=== PATIENT | male | born 1935 | race Caucasian/White ===

== ENCOUNTER 2017-02-04 11:49 | Inpatient (IN) | payer MEDICARE, OTHER ==
[2017-02-04] MEDS ORDERED: Aspirin Low Dose CHEW TAB* 81 MG PO ONE (12:47)
[2017-02-04 13:23] LABS: Hematocrit 39 % (42-52); Hemoglobin 13.1 g/dl (14.0-18.0); Mean Corpuscular HGB Conc 34 g/dl (31-36); Mean Corpuscular Hemoglobin 31 pg (27-31); Mean Corpuscular Volume 91 fL (80-94); Mean Platelet Volume 8 um3 (7.4-10.4); Red Blood Count 4.29 10^6/ul (4.0-5.4); Red Cell Distribution Width 14 % (10.5-15); White Blood Count 9.6 10^3/ul (3.5-10.8)
--- NOTE | 2017-02-04 13:35 | RAD ---
HISTORY: Chest pain, shortness of breath COMPARISONS: March 08, 2007 VIEWS: 1: frontal portable view of the chest at 1:00 PM FINDINGS: LINES AND TUBES: None. CARDIOMEDIASTINAL SILHOUETTE: The cardiomediastinal silhouette is normal for portable technique. PLEURA: The costophrenic angles are sharp. No pleural abnormalities are noted. LUNG PARENCHYMA: The lungs are clear. ABDOMEN: The upper abdomen is clear. There is no subphrenic gas. BONES AND SOFT TISSUES: No bone or soft tissue abnormalities are noted. IMPRESSION: NO ACTIVE CARDIOPULMONARY DISEASE.
[2017-02-04 13:39] LABS: Albumin 3.5 g/dL (3.2-5.2); BUN/Creatinine Ratio 15.3 (8-20); C Reactive Protein 27.22 mg/L (< 5.00); Calcium 9.7 mg/dL (8.6-10.3); EGFR African American 111.5 (>60); EGFR Non-African American 86.7 (>60); Globulin 3.2 g/dL (2-4); Potassium 3.3 mmol/L (3.5-5.0); Total Bilirubin 0.5 mg/dL (0.2-1.0); Total Protein 6.7 g/dL (6.4-8.9)
[2017-02-04 13:40] LABS: Troponin I 0.03 ng/mL (<0.04)
[2017-02-04] MEDS ORDERED: Albuterol/Ipratropium NEB.SOL* Albuterol 2.5 MG/Ipratropium 0.5 MG 3 ML INH ONE (13:40)
[2017-02-04] MEDS ORDERED: methylPREDNISolone 125 MG* 2 ML VIAL IV ONE (13:40)
[2017-02-04] MEDS ORDERED: guaiFENesin/CODIEN 100MG-10MG* 5 ML UDC PO ONE (13:41)
--- NOTE | 2017-02-04 13:46 | RAD ---
HISTORY: Left leg swelling COMPARISONS: January 01, 2007 TECHNIQUE: Multiple transverse and longitudinal ultrasound images were obtained of the left lower extremity from the level of the common femoral vein inferiorly through to the infrapopliteal veins using grayscale, color Doppler, and spectral Doppler imaging with and without compression and with augmentation. Comparison images were obtained of the contralateral common femoral vein. FINDINGS: VEINS: The venous system of the left lower extremity is compressible throughout its course, with normal flow on color Doppler imaging and normal response to augmentation on spectral Doppler imaging. SOFT TISSUES: Unremarkable. OTHER FINDINGS: None. IMPRESSION: NO LEFT LOWER EXTREMITY DEEP VEIN THROMBOSIS
[2017-02-04] MEDS ORDERED: LORazepam INJ* 2 MG/ML 1 ML VIAL IV PUSH ONE (14:11)
[2017-02-04] MEDS ORDERED: Iodixanol* (CONTRAST) 320 MG/ML 100 ML SDV IV ONE (14:17)
[2017-02-04 15:35] LABS: Erythrocyte Sed Rate 73 mm/Hr (0-40)
--- NOTE | 2017-02-04 15:41 | RAD ---
HISTORY: Elevated d-dimer COMPARISONS: November 19, 2013 TECHNIQUE: Multiple contiguous axial CT scans of the chest were obtained after the administration of nonionic intravenous contrast, timed to the pulmonary arterial phase of contrast enhancement.. Coronal and sagittal multiplanar reformations are also submitted for review. FINDINGS: NECK AND THYROID: The lower neck and thyroid are unremarkable. CHEST WALL: There is no lower cervical, axillary, or supraclavicular lymphadenopathy by size criteria. HEART AND PERICARDIUM: The heart is unremarkable. AORTA AND PULMONARY VASCULATURE: There is no pulmonary arterial filling defect to suggest pulmonary embolism. There is no linear filling defect within the aorta to suggest aortic dissection, though evaluation is limited by the phase of contrast administration.. There is atherosclerosis of the thoracic aorta MEDIASTINUM: There is no mediastinal lymphadenopathy by size criteria. SAMEER: There is no hilar lymphadenopathy by size criteria. AIRWAY AND ESOPHAGUS: There is a small sliding hiatal hernia LUNG PARENCHYMA: There is minimal groundglass opacification of the left lung base PLEURA: No pleural abnormalities are noted. UPPER ABDOMEN: The upper abdomen is unremarkable. BONES AND SOFT TISSUES: Degenerative changes are noted OTHER: None. IMPRESSION: 1. NO PULMONARY ARTERIAL FILLING DEFECT TO SUGGEST PULMONARY EMBOLISM. 2. MINIMAL PATCHY AIRSPACE DISEASE OF THE LEFT LOWER LOBE
--- NOTE | 2017-02-04 15:44 | RAD ---
Indication: Chest pain and shortness of breath since Friday. Comparison: November 19, 2013 Technique: Noncontrast CT vertex of skull through foramen magnum. Report: The sulci, ventricles, and basal cisterns are normal for age. Arnold matter white matter differentiation is preserved without evidence for edema. No intra or extra axial hemorrhage, mass, or fluid collection detected. Decreased density in the periventricular and subcortical white matter while non-specific is most likely due to chronic microangiopathy. Atherosclerotic calcification of the dominant intracranial arteries at the skull base. Unremarkable visualized orbital contents. Unremarkable calvarium and skull base. Unremarkable scalp. The visualized paranasal sinuses and mastoid air spaces are clear. IMPRESSION: 1. No acute intracranial process evident. 2. Stigmata of chronic small vessel ischemic disease without change.
[2017-02-04] MEDS ORDERED: Azithromycin IV(*) 500 MG in NS 0.9% 250 ML* 250 ML IVPB ONE (16:55)
[2017-02-04] MEDS ORDERED: cefTRIAXone(*) 1 GM in NS 0.9% 50 ML* 50 ML IVPB ONE (16:55)
[2017-02-04] MEDS ORDERED: Ondansetron INJ* 2 MG/ML VIAL IV PRN (18:06)
[2017-02-04] MEDS ORDERED: Dextrose 50% Syringe 50 ML* 25 GM/50 ML SYRINGE IV PUSH PRN (18:18)
[2017-02-04] MEDS ORDERED: Albuterol/Ipratropium NEB.SOL* Albuterol 2.5 MG/Ipratropium 0.5 MG 3 ML INH PRN (19:00)
[2017-02-04] MEDS ORDERED: Enoxaparin(*) 40 MG/0.4 ML SYR SUBCUT SCH (19:00)
[2017-02-04 21:02] LABS: TSH (Thyroid Stimulating Horm) 67.55 mcIU/mL (0.34-5.60)
--- NOTE | 2017-02-04 21:34 | HP ---
ADMISSION HISTORY AND PHYSICAL: DATE OF ADMISSION: 02/04/17 PRIMARY CARE PROVIDER: Not yet established. ADMITTING PROVIDER: SUSI Leggett SUPERVISING PHYSICIAN: Dr. Agus Bragg * (DICTATED BY SUSI LEGGETT) CHIEF COMPLAINT: Shortness of breath and cough with right-sided chest pain. HISTORY OF PRESENT ILLNESS: This is an 81-year-old gentleman with a known history of coronary artery disease, status post PCI; hypertension; hypothyroidism; mild COPD; insulin-dependent diabetes, who presented to the emergency department with complaints of shortness of breath, right-sided chest pain, and cough for the last couple of days. His chest pain is not acute. He sustained a fall a few months ago, which he believes he injured the ribs on his right side and that has been bothersome with various position changes ever since. He notices the pain being worse with cough that he has been experiencing in the last couple of days. He has had cold, sweats, and felt feverish at home. He has had associated headache and nasal congestion and felt mildly short of breath associated with this productive cough. He has not taken any home [id number] medications. PAST MEDICAL HISTORY: 1. Hypertension. 2. Coronary artery disease, status post PCI several years ago, recent cath from within the last year is described as 100% stenosis with collateral circulation established. 3. Hypothyroidism. 4. COPD - the patient does not use any home inhaled therapy. 5. Insulin-dependent diabetes - the patient states that he rarely requires his insulin. PAST SURGICAL HISTORY: 1. Cholecystectomy. 2. PCI. 3. Cataract extraction. 4. Possible retinal surgery. HOME MEDICATIONS: 1. Aspirin 81 mg p.o. daily. 2. Plavix 75 mg p.o. daily. 3. Humulin regular insulin 25 units subcu 3 times daily if glucose is greater than 125 mg/dL. 4. Isosorbide 20 mg p.o. daily. 5. Levothyroxine of unknown dose. 6. Lisinopril 40 mg p.o. daily. 7. Metoprolol succinate 25 mg p.o. daily. 8. Amlodipine 10 mg p.o. daily. 9. Hydralazine 100 mg p.o. twice daily. SOCIAL HISTORY: The patient recently moved to the area just about a month ago from [place] to be closer to his daughter. He does have smoking history, but quit about 30 years ago. He said that he was a heavy smoker prior to that and unsure of the pack year history. REVIEW OF SYSTEMS: As noted above in HPI, all other systems reviewed and considered negative. PHYSICAL EXAMINATION GENERAL: This is a pleasant elderly gentleman, in no acute distress accompanied by his daughter. VITAL SIGNS: Initial vitals, temperature 97.9 degrees Fahrenheit, pulse 65 beats per minute, respiratory rate 20 per minute, oxygen saturation 97% on room air, and blood pressure 130/64 mmHg. HEENT: Head is normocephalic, atraumatic. Mucous membranes are pink and moist. RESPIRATORY: The patient has a wet cough with diffuse rhonchi appreciated throughout all lung raya. CARDIOVASCULAR: Heart has a regular rate and rhythm without murmurs, rubs, or gallops. ABDOMEN: Soft and nontender to palpation. EXTREMITIES: There is some subtle left lower extremity edema, otherwise negative. PSYCH: The patient is alert and appropriately oriented. SKIN: Limited exam shows no concerning rashes or lesions. DIAGNOSTIC STUDIES/LAB DATA: CBC shows a white blood cell count of 9600, hemoglobin of 13.1 g/dL, platelet count of 229,000. D-dimer 682. Comprehensive metabolic panel shows a sodium of 137 mmol/L, potassium 3.3, BUN of 13, creatinine 0.85. Random glucose of 126 mg/dL. Lactic acid normal at 0.8. Transaminases and total bilirubin within normal limits. Troponin negative x2 at 0.03 and 0.02. CRP only mildly elevated at 27.2. BNP slightly elevated at 184. Influenza testing is negative. Imaging: Chest x-ray shows no acute process. CTA of the chest shows no PE, but subtle left lower lobe infiltrate. Venous Doppler of the left lower extremity shows no DVT. CT of the brain is negative for acute pathology. ASSESSMENT AND PLAN: This is an 81-year-old gentleman with history of coronary artery disease, chronic obstructive pulmonary disease, hypothyroidism, diabetes , and hypertension, who presents with cough, chest pain, and fevers with a subtle left lower lobe infiltrate appreciated on CT scan. 1. Pneumonia - the patient will be admitted for treatment of most likely a community-acquired pneumonia. He does not have any significant tachypnea, hypoxia, fever, or leukocytosis. He is, however, significantly symptomatic with complaints of frequent cough, malaise, and feeling feverish at home. We will empirically treat with ceftriaxone and azithromycin. With his history of chronic obstructive pulmonary disease, we will also start oral prednisone and DuoNeb. 2. Chronic obstructive pulmonary disease - there might be a mild associated exacerbation as a result of this pneumonia. He does have diffuse rhonchi. He states that he does not use any inhaled therapies at home. We will start DuoNeb and oral corticosteroids during his hospital stay. 3. Insulin-dependent diabetes - the patient states that he rarely requires use of his insulin because his glucose is generally less than 125 mg/dL at which point he was told not to take this. We will plan to check a hemoglobin A1c and the patient may no longer require the large amount of insulin that had been prescribed to him, but he is yet to establish primary care in the area, which can help address this further as an outpatient. 4. Hypertension - the patient is mildly hypertensive in the emergency department. We will plan to continue his usual antihypertensive medications. 5. Hypothyroidism - the patient reports a history of hypothyroidism and believes that he is on thyroid medication, but the medication bag that he provides me does not have levothyroxine present. We will plan to check a TSH, it sounds like levothyroxine not need to be prescribed to him as he recently just moved to the area and is yet to establish primary care. 6. Coronary artery disease - the patient is complaining of chest pain; however , it is right-sided, positional, and worse with coughing. His infiltrate is on the opposite side and it sounds like his chest pain has been present for several months after a fall and is simply exacerbated by his cough and not necessarily claim representative of an acute complaint and there is certainly no evidence of acute coronary syndrome. 7. Code status. The patient is full code. 8. DVT prophylaxis. The patient will be started on subcu Lovenox. 9. Healthcare proxy is his daughter. DISPOSITION: The patient is being admitted to observation status. Anticipated length of stay to be less than 2 midnights. The patient will require to be established with the primary care provider at the time of discharge. SUSI LEGGETT [id number]/[facility] #: [id number] [facility]ITALBarbara
[2017-02-04] MEDS: hydrALAZINE TAB* 100 MG ** ONE HUNDRED PO SCH (22:13)
[2017-02-04] MEDS: Enoxaparin(*) 40 MG/0.4 ML SYR SUBCUT SCH (22:14)
[2017-02-04] MEDS ORDERED: guaiFENesin LIQ* 100 MG/5 ML UDC PO ONE (23:08)
[2017-02-05 06:21] LABS: Hematocrit 35 % (42-52); Hemoglobin 12.3 g/dl (14.0-18.0); Mean Corpuscular HGB Conc 35 g/dl (31-36); Mean Corpuscular Hemoglobin 31 pg (27-31); Mean Corpuscular Volume 90 fL (80-94); Mean Platelet Volume 9 um3 (7.4-10.4); Red Blood Count 3.94 10^6/ul (4.0-5.4); Red Cell Distribution Width 14 % (10.5-15); White Blood Count 8.6 10^3/ul (3.5-10.8)
[2017-02-05 06:38] LABS: BUN/Creatinine Ratio 21.8 (8-20); Calcium 9.5 mg/dL (8.6-10.3); EGFR African American 108.6 (>60); EGFR Non-African American 84.4 (>60); Potassium 3.4 mmol/L (3.5-5.0)
[2017-02-05] MEDS: Metoprolol Succinate XL TAB* 25 MG PO SCH (07:43)
[2017-02-05] MEDS ORDERED: Polyethylene Glycol 3350* 17 GM PACKET PO PRN (08:00)
[2017-02-05] MEDS: Insulin LISPRO* 1 UNITS UNIT SUBCUT SCH ×3 (08:36→18:01)
[2017-02-05] MEDS: amLODIPine TAB* 5 MG PO SCH (08:37)
[2017-02-05] MEDS: hydrALAZINE TAB* 100 MG ** ONE HUNDRED PO SCH ×2 (08:37→20:25)
[2017-02-05] MEDS: predniSONE TAB* 20 MG PO SCH (08:37)
[2017-02-05] MEDS: Lisinopril TAB* 10 MG PO SCH (08:37)
[2017-02-05] MEDS: Clopidogrel TAB* 75 MG PO SCH (08:37)
[2017-02-05] MEDS: Aspirin EC Low Dose* 81 MG TAB.EC PO SCH (08:37)
[2017-02-05] MEDS: CMC:Isosorbide Mononitrate (NF) 20 MG TAB PO SCH (08:49)
--- NOTE | 2017-02-05 10:24 | PN ---
Subjective Date of Service: 02/05/17 Interval History: This is an 81 yo gentleman admitted yesterday with PNA. He reports he still has a freq cough, some mild R sided chest pain. No severe dyspnea. He feels weak and would like to pursue additional physical therapy. Denies abd pain, n/ v. Objective Active Medications: Albuterol/Ipratropium (Duoneb (Albuterol 2.5 Mg/Ipratropium 0.5 Mg)) 1 neb INH RT.D1PM-POMBD AWAKE [facility] Amlodipine Besylate (Norvasc Tab*) 10 mg PO DAILY [facility] Last Admin: 02/05/17 08:37 Dose: 10 mg Aspirin (Aspirin Ec Low Dose*) 81 mg PO DAILY [facility] Last Admin: 02/05/17 08:37 Dose: 81 mg Clopidogrel Bisulfate (Plavix Tab*) 75 mg PO DAILY [facility] Last Admin: 02/05/17 08:37 Dose: 75 mg Dextrose (D50w Syringe 50 Ml*) 12.5 gm IV PUSH .FOR FS < 60 - SS PRN PRN Reason: FS < 60 Enoxaparin Sodium (Lovenox(*)) 40 mg SUBCUT 2200 [facility] Last Admin: 02/04/17 22:14 Dose: 40 mg Hydralazine HCl (Apresoline Tab*) 100 mg PO BID [facility] Last Admin: 02/05/17 08:37 Dose: 100 mg Ceftriaxone Sodium 1,000 mg/ (Sodium Chloride) 50 mls @ 200 mls/hr IVPB Q24H [facility] Azithromycin 250 mg/ Sodium (Chloride) 250 mls @ 250 mls/hr IVPB Q24H [facility] Insulin Glargine (Lantus(*)) 10 units SUBCUT QPM [facility] Insulin Human Lispro (Humalog*) 0 units SUBCUT AC [facility] PRN Reason: Protocol Last Admin: 02/05/17 08:36 Dose: 2 units Isosorbide Mononitrate (Isosorbide Mononitrate (Nf)) 20 mg PO DAILY [facility] PRN Reason: Protocol Last Admin: 02/05/17 08:49 Dose: 20 mg Levothyroxine Sodium (Synthroid Tab*) 150 mcg PO DAILY@0600 [facility] Lisinopril (Prinivil Tab*) 40 mg PO DAILY [facility] Last Admin: 02/05/17 08:37 Dose: 40 mg Metoprolol Succinate (Toprol Xl Tab*) 25 mg PO DAILY [facility] Last Admin: 02/05/17 07:43 Dose: Not Given Ondansetron HCl (Zofran Inj*) 4 mg IV Q4H PRN PRN Reason: NAUSEA/VOMITING Polyethylene Glycol/Electrolytes (Miralax*) 17 gm PO DAILY PRN PRN Reason: CONSTIPATION Prednisone (Deltasone Tab*) 40 mg PO DAILY [facility] Last Admin: 02/05/17 08:37 Dose: 40 mg Vital Signs: Temp Pulse Resp BP Pulse Ox 98.2 F 75 18 154/56 97 02/05/17 03:33 02/05/17 03:33 02/05/17 03:33 02/05/17 03:33 02/05/17 03:33 Oxygen Devices in Use Now: None Appearance: Elderly gentleman in NAD. Accompanied by his daughter Respiratory: Symmetrical Chest Expansion and Respiratory Effort, - - diffuse rhonchi, productive cough Cardiovascular: NL Sounds; No Murmurs; No JVD, RRR Extremities: No Edema Neurological: Alert and Oriented x 3 Result Diagrams: 02/05/17 05:44 02/05/17 05:44 Assess/Plan/Problems-Billing Assessment: This is an 81 yo gentleman with mild COPD, CAD, DM, hypothyroidism and HTN who presented with c/o cough and CP. He has been admitted with a community acquired pneumonia. - Patient Problems (1) Community acquired pneumonia Comment: Cont ceftriaxone/azithro Cultures pending (2) COPD exacerbation Comment: Mild, diffuse rhonchi on exam Cont oral corticosteroids and DuoNebs (3) Diabetes Comment: Prescribed Humulin-R at home at doses of 35U tid, he reports that he takes 25U ~ 3x weekly, as his glucose is generally <120 mg/dl HgbA1c 7% He reports a poor reaction to metformin and does not wish to start any alternate oral therapies Will start low dose Lantus and monitor mealtime glucose (4) Hypothyroidism Comment: TSH 67.5 Patient admits to forgetting his levothyroxine for some time, he believes he was on 150mcg daily Restarted levothyroxine, recommend repeat TSH in 4-6 weeks (5) Hypertension Comment: Mild HTN Cont home antihypertensives at this time (6) CAD (coronary artery disease) Comment: No evidence of ACS, presenting c/o CP is most likely MS related to cough Cont home medical therapy (7) Full code status (8) DVT prophylaxis Comment: SQ Lovenox Status and Disposition: Transition to inpatient. Patient would benefit from LINDSAY prior to returning home. Pending PT/OT consult
[2017-02-05] MEDS: Albuterol/Ipratropium NEB.SOL* Albuterol 2.5 MG/Ipratropium 0.5 MG 3 ML INH SCH ×4 (10:37→23:35)
--- NOTE | 2017-02-05 13:31 | ED ---
Rubens Mcgregor Nilda, scribed for Kavin Narayanan MD on 02/04/17 at 1312 . Respiratory - HPI Summary HPI Summary: This patient is an 81 year old M presenting to [facility] accompanied by family with a chief complaint of exacerbated productive cough (yellow) since two days ago. The patient rates the pain 7/10 in severity. Symptoms alleviated by nothing. Patient reports head pain, edema, neck pain, chest pain (when coughing), wheezing, SOB, orthopnea, aches and pains, falls often, ambulation difficulties. PMHx includes CAD (5 stents), COPD, and bronchitis. - History of Current Complaint Chief Complaint: EDChestPainROMI Stated Complaint: SOB/DIFFICULTY BREATHING/COUGH Time Seen by Provider: 02/04/17 12:44 Hx Obtained From: Patient Onset/Duration: Gradual Onset, Lasting Days - 2 days, Still Present Timing: Constant Current Severity: Severe Pain Intensity: 7 Character: Cough (Productive) Sputum Amount: Large Sputum Color: Yellow Alleviating Factor(s): Nothing Associated Signs and Symptoms: SOB, Chest Pain with Cough - Allergy/Home Medications Allergies/Adverse Reactions: Allergies Allergy/AdvReac Type Severity Reaction Status Date / Time Amlodipine [From Norvasc] Allergy Unknown Verified 02/04/17 11:56 Reaction Details Atorvastatin [From Lipitor] Allergy Unknown Verified 02/04/17 11:56 Reaction Details Dipyridamole Allergy Unknown Verified 02/04/17 11:56 [From Persantine] Reaction Details Eplerenone [From Inspra] Allergy Unknown Verified 02/04/17 11:56 Reaction Details Ezetimibe [From Vytorin] Allergy Unknown Verified 02/04/17 11:56 Reaction Details Gemfibrozil [From Lopid] Allergy Unknown Verified 02/04/17 11:56 Reaction Details Rosuvastatin [From Crestor] Allergy Unknown Verified 02/04/17 11:56 Reaction Details Simvastatin [From Vytorin] Allergy Unknown Verified 02/04/17 11:56 Reaction Details PMH/Surg Hx/FS Hx/Imm Hx Endocrine/Hematology History: Reports: Hx Diabetes Cardiovascular History: Reports: Hx Coronary Artery Disease, Hx Hypertension Respiratory History: Reports: Hx Chronic Bronchitis, Hx Chronic Obstructive Pulmonary Disease (COPD) - Surgical History Surgery Procedure, Year, and Place: CATARACTS, CARDIAC CATH Infectious Disease History: No Infectious Disease History: Denies: Traveled Outside the [place] in Last 30 Days - Family History Known Family History: Positive: Diabetes Negative: Hypertension - Social History Alcohol Use: Occasionally Substance Use Type: Reports: None Review of Systems Negative: Fever, Chills Negative: Erythema Negative: Sore Throat Positive: Chest Pain - with coughing Positive: Shortness Of Breath, Cough - productive, Other - wheezing, orthopnea Negative: Abdominal Pain, Vomiting, Nausea Negative: dysuria, hematuria Positive: Edema, Other - neck pain, general aches and pains, ambulation difficulty. Negative: Myalgia Negative: Rash Neurological: Other - falls; negative dizziness Positive: Headache All Other Systems Reviewed And Are Negative: Yes Physical Exam - Summary Physical Exam Summary: Constitutional: Well-developed, Well-nourished, Alert. (-) Distressed Skin: Warm, Dry HENT: Normocephalic; Atraumatic Eyes: Conjunctiva normal Neck: Musculoskeletal ROM normal neck. (-) JVD, (-) Stridor, (-) Tracheal deviation Cardio: Rhythm regular, rate normal, Heart sounds normal; Intact distal pulses; The pedal pulses are 2+ and symmetric. Radial pulses are 2+ and symmetric. (-) Murmur Pulmonary/Chest wall: Effort normal. (-) Respiratory distress, Expiratory wheezes and crackles on left lower lung field Abd: Soft, (-) Tenderness, (-) Distension, (-) Guarding, (-) Rebound Musculoskeletal: (+) Trace Edema Lymph: (-) Cervical adenopathy Neuro: Alert, Oriented x3 Psych: Mood and affect Normal Triage Information Reviewed: Yes Vital Signs On Initial Exam: Initial Vitals Temp Pulse Resp BP Pulse Ox 97.9 F 65 20 130/64 97 02/04/17 11:55 02/04/17 11:55 02/04/17 11:55 02/04/17 11:55 02/04/17 11:55 Vital Signs Reviewed: Yes Diagnostics - Vital Signs Vital Signs Temp Pulse Resp BP Pulse Ox 02/04/17 11:55 97.9 F 65 20 130/64 97 - Laboratory Result Diagrams: 02/04/17 13:10 02/04/17 13:10 Lab Statement: Any lab studies that have been ordered have been reviewed, and results considered in the medical decision making process. - Radiology CXR Radiology Interpretation Completed By: Radiologist - NAD. ED physician reviewed report and agrees. - CT Brain CT Interpretation Completed By: Radiologist - No acute intracranial process evident. Stigmata of chronic small vessel ischemic disease without change. ED physician reviewed report and agrees. CTA Chest CT Interpretation Completed By: Radiologist - No pulmonary arterial filling defect to suggest pulmonary embolism. Minimal patchy airspace disease of the left lower lobe. ED physician reviewed report and agrees. - EKG 1203 Cardiac Rate: NL - 64 bpm EKG Rhythm: Sinus Rhythm Ectopy: PACs EKG Interpretation: No STEMI - Additional Comments Diagnostic Additional Comments: Venous Doppler Study, per radiologists, reveals no left lower extremity deep vein thrombosis. ED physician has reviewed this radiology report and agrees. Re-Evaluation - Re-Evaluation First Eval Re-Evaluation Time: 16:53 Comment: ED Physician reviewed lab results. Patient does not feel comfortable going home and would like to be admitted. Disposition - Course Assessment/Plan: This patient is an 81 year old M presenting to [facility] accompanied by family with a chief complaint of exacerbated productive cough ( yellow) since two days ago. The patient rates the pain 7/10 in severity. Symptoms alleviated by nothing. Patient reports head pain, edema, neck pain, chest pain (when coughing), wheezing, SOB, orthopnea, aches and pains, falls often, ambulation difficulties. PMHx includes CAD (5 stents), COPD, and bronchitis. EKG reveals Sinus Rhythm (64 bpm), PACs, No STEMI [1203. CXR, per radiologist, reveals no active pulmonary disease. Venous Doppler Study, per radiologist, reveals no left lower extremity deep vein thrombosis. CT Brain, per radiologist, reveals no acute intracranial process evident. Stigmata of chronic small vessel ischemic disease without change. CTA Chest, per radiologist, reveals no pulmonary arterial filling defect to suggest pulmonary embolism. Minimal patchy airspace disease of the left lower lobe. ED physician reviewed radiology reports and agrees. [16:53] Re-Eval: ED Physician reviewed lab results. Patient does not feel comfortable going home and would like to be admitted. [1700] Consult: Dr. Allen (Hospitalist) will admit patient. Patient is stable and will be admitted with a diagnosis of community acquired PNA and chest wall pain. - Diagnoses Provider Diagnoses: Chest wall pain, Community acquired pneumonia - Physician Notifications Discussed Care Of Patient With: Avani Allen - Hospitalist Time Discussed With Above Provider: 17:00 Instructed by Provider To: Admit As Inpatient Discharge - Discharge Plan Condition: Stable Disposition: ADMITTED TO [facility] Patient Education Materials: Pneumonia (ED), Chest Wall Pain (ED) The documentation as recorded by the Rubens breaux Nilda accurately reflects the service I personally performed and the decisions made by , Kavin Narayanan MD.
[2017-02-05] MEDS: Insulin GLARGINE(*) 1 UNITS UNIT SUBCUT SCH (18:01)
[2017-02-05] MEDS: cefTRIAXone VIAL(*) 1,000 MG in NS 0.9% 50 ML* 50 ML IVPB SCH (18:01)
[2017-02-05] MEDS: Azithromycin IV(*) 250 MG in NS 0.9% 250 ML* 250 ML IVPB SCH (18:29)
[2017-02-05] MEDS: Enoxaparin(*) 40 MG/0.4 ML SYR SUBCUT SCH (21:15)
[2017-02-05] MEDS ORDERED: traZODone TAB* 50 MG TAB PO ONE (21:43)
[2017-02-06] MEDS: Albuterol/Ipratropium NEB.SOL* Albuterol 2.5 MG/Ipratropium 0.5 MG 3 ML INH SCH ×6 (03:47→23:27)
[2017-02-06] MEDS: Levothyroxine TAB* 150 MCG TAB PO SCH (06:14)
[2017-02-06] MEDS ORDERED: Levothyroxine TAB* 50 MCG TAB PO SCH (07:30)
[2017-02-06] MEDS: Insulin LISPRO* 1 UNITS UNIT SUBCUT SCH ×3 (08:50→17:12)
[2017-02-06] MEDS: Metoprolol Succinate XL TAB* 25 MG PO SCH (08:55)
[2017-02-06] MEDS: Lisinopril TAB* 10 MG PO SCH (09:00)
[2017-02-06] MEDS: predniSONE TAB* 20 MG PO SCH (09:00)
[2017-02-06] MEDS: hydrALAZINE TAB* 100 MG ** ONE HUNDRED PO SCH ×3 (09:00→21:30)
[2017-02-06] MEDS: CMC:Isosorbide Mononitrate (NF) 20 MG TAB PO SCH (09:00)
[2017-02-06] MEDS: Aspirin EC Low Dose* 81 MG TAB.EC PO SCH (09:01)
[2017-02-06] MEDS: amLODIPine TAB* 5 MG PO SCH (09:01)
[2017-02-06] MEDS: Clopidogrel TAB* 75 MG PO SCH (09:01)
[2017-02-06] MEDS: Acetaminophen TAB* 325 MG PO PRN (10:16)
--- NOTE | 2017-02-06 12:35 | PN ---
Subjective Date of Service: 02/06/17 Interval History: Patient is not feeling well today. He reports that he didn't sleep well last night because of disruption from a roommate. He is complaining of a MOORE, malaise , cough, some increased SOB. No abd pain. Poor appetite. No n/v. Objective Active Medications: Acetaminophen (Tylenol Tab*) 650 mg PO Q6H PRN PRN Reason: pain/fever Last Admin: 02/06/17 10:16 Dose: 650 mg Albuterol/Ipratropium (Duoneb (Albuterol 2.5 Mg/Ipratropium 0.5 Mg)) 1 neb INH [id number] AWAKE [facility] Last Admin: 02/06/17 11:48 Dose: Not Given Amlodipine Besylate (Norvasc Tab*) 10 mg PO DAILY [facility] Last Admin: 02/06/17 09:01 Dose: 10 mg Aspirin (Aspirin Ec Low Dose*) 81 mg PO DAILY [facility] Last Admin: 02/06/17 09:01 Dose: 81 mg Clopidogrel Bisulfate (Plavix Tab*) 75 mg PO DAILY [facility] Last Admin: 02/06/17 09:01 Dose: 75 mg Dextrose (D50w Syringe 50 Ml*) 12.5 gm IV PUSH .FOR FS < 60 - SS PRN PRN Reason: FS < 60 Enoxaparin Sodium (Lovenox(*)) 40 mg SUBCUT 2200 [facility] Last Admin: 02/05/17 21:15 Dose: 40 mg Hydralazine HCl (Apresoline Tab*) 100 mg PO TID [facility] Ceftriaxone Sodium 1,000 mg/ (Sodium Chloride) 50 mls @ 200 mls/hr IVPB Q24H [facility] Last Admin: 02/05/17 18:01 Dose: 200 mls/hr Azithromycin 250 mg/ Sodium (Chloride) 250 mls @ 250 mls/hr IVPB Q24H [facility] Last Admin: 02/05/17 18:29 Dose: 250 mls/hr Insulin Glargine (Lantus(*)) 10 units SUBCUT QPM [facility] Last Admin: 02/05/17 18:01 Dose: 10 units Insulin Human Lispro (Humalog*) 0 units SUBCUT AC [facility] PRN Reason: Protocol Last Admin: 02/06/17 08:50 Dose: 1 units Isosorbide Mononitrate (Isosorbide Mononitrate (Nf)) 20 mg PO DAILY [facility] PRN Reason: Protocol Last Admin: 02/06/17 09:00 Dose: 20 mg Levothyroxine Sodium (Synthroid Tab*) 150 mcg PO DAILY@0600 [facility] Last Admin: 02/06/17 06:14 Dose: 150 mcg Lisinopril (Prinivil Tab*) 40 mg PO DAILY [facility] Last Admin: 02/06/17 09:00 Dose: 40 mg Metoprolol Succinate (Toprol Xl Tab*) 25 mg PO DAILY [facility] Last Admin: 02/06/17 08:55 Dose: Not Given Ondansetron HCl (Zofran Inj*) 4 mg IV Q4H PRN PRN Reason: NAUSEA/VOMITING Polyethylene Glycol/Electrolytes (Miralax*) 17 gm PO DAILY PRN PRN Reason: CONSTIPATION Prednisone (Deltasone Tab*) 40 mg PO DAILY [facility] Last Admin: 02/06/17 09:00 Dose: 40 mg Vital Signs: Temp Pulse Resp BP Pulse Ox 98.7 F 62 23 160/64 96 02/06/17 09:10 02/06/17 09:10 02/06/17 09:10 02/06/17 09:10 02/06/17 09:10 Oxygen Devices in Use Now: None Appearance: Mildly ill appearing elderly gentleman in NAD Respiratory: Symmetrical Chest Expansion and Respiratory Effort, - - diffuse rhonchi Cardiovascular: NL Sounds; No Murmurs; No JVD, RRR Abdominal: NL Sounds; No Tenderness; No Distention Extremities: No Edema Neurological: Alert and Oriented x 3 Result Diagrams: 02/05/17 05:44 02/05/17 05:44 Microbiology and Other Data: Microbiology 02/06/17 09:07 Gram Stain - Final Sputum Assess/Plan/Problems-Billing Assessment: This is an 81 yo gentleman with mild COPD, CAD, DM, hypothyroidism and HTN who presented with c/o cough and CP. He has been admitted with a community acquired pneumonia. - Patient Problems (1) Community acquired pneumonia Comment: Cont ceftriaxone/azithro Cultures still pending Worsening cough and SOB today, but afebrile Will repeat labs and CXR (2) COPD exacerbation Comment: Mild, diffuse rhonchi on exam Cont oral corticosteroids and DuoNebs (3) Diabetes Comment: Prescribed Humulin-R at home at doses of 35U tid, he reports that he takes 25U ~ 3x weekly, as his glucose is generally <120 mg/dl HgbA1c 7% He reports a poor reaction to metformin and does not wish to start any alternate oral therapies Started low dose Lantus and monitor mealtime glucose (4) Hypothyroidism Comment: TSH 67.5 Patient admits to forgetting his levothyroxine for some time, he believes he was on 150mcg daily Restarted levothyroxine, recommend repeat TSH in 4-6 weeks (5) Hypertension Comment: Mild HTN Cont home antihypertensives at this time (6) CAD (coronary artery disease) Comment: No evidence of ACS, presenting c/o CP is most likely MS related to cough Cont home medical therapy (7) Full code status (8) DVT prophylaxis Comment: SQ Lovenox Status and Disposition: Inpatient. Patient would benefit from [facility] prior to returning home. Anticipate dc in 1-2 d
[2017-02-06] MEDS: guaiFENesin/CODIEN 100MG-10MG* 5 ML UDC PO PRN (12:44)
[2017-02-06 14:54] LABS: Hematocrit 36 % (42-52); Mean Corpuscular HGB Conc 34 g/dl (31-36); Mean Corpuscular Hemoglobin 31 pg (27-31); Mean Corpuscular Volume 91 fL (80-94); Mean Platelet Volume 9 um3 (7.4-10.4); Red Blood Count 3.91 10^6/ul (4.0-5.4); Red Cell Distribution Width 14 % (10.5-15); White Blood Count 10.6 10^3/ul (3.5-10.8)
[2017-02-06 15:08] LABS: BUN/Creatinine Ratio 21.1 (8-20); C Reactive Protein 13.1 mg/L (< 5.00); Calcium 9.9 mg/dL (8.6-10.3); EGFR African American 72.8 (>60); EGFR Non-African American 56.6 (>60); Potassium 4.3 mmol/L (3.5-5.0)
--- NOTE | 2017-02-06 15:30 | RAD ---
INDICATION: Pneumonia COMPARISON: Chest x-ray February 04, 2017 TECHNIQUE: PA and lateral dual-energy views were obtained. FINDINGS: Bones/Soft Tissues: There are no acute bony findings. Cardiomediastinal: The cardiomediastinal silhouette is normal. Lungs: There is consolidative change in the right middle lobe with mild fine loss consistent with infiltrate or atelectasis. The remaining raya are clear. Pleura: There are no pleural effusions. Other: None IMPRESSION: RIGHT MIDDLE LOBE INFILTRATE. SUGGEST FOLLOW-UP.
[2017-02-06] MEDS: Insulin GLARGINE(*) 1 UNITS UNIT SUBCUT SCH (18:14)
[2017-02-06] MEDS: cefTRIAXone VIAL(*) 1,000 MG in NS 0.9% 50 ML* 50 ML IVPB SCH (18:14)
[2017-02-06] MEDS: Azithromycin IV(*) 250 MG in NS 0.9% 250 ML* 250 ML IVPB SCH (19:02)
[2017-02-06] MEDS: Enoxaparin(*) 40 MG/0.4 ML SYR SUBCUT SCH (21:31)
[2017-02-06] MEDS ORDERED: traZODone TAB* 50 MG TAB PO ONE (23:28)
[2017-02-07] MEDS: Albuterol/Ipratropium NEB.SOL* Albuterol 2.5 MG/Ipratropium 0.5 MG 3 ML INH SCH ×6 (03:14→22:12)
[2017-02-07 06:06] LABS: Hematocrit 32 % (42-52); Hemoglobin 11.3 g/dl (14.0-18.0); Mean Corpuscular HGB Conc 35 g/dl (31-36); Mean Corpuscular Hemoglobin 32 pg (27-31); Mean Corpuscular Volume 90 fL (80-94); Mean Platelet Volume 9 um3 (7.4-10.4); Red Blood Count 3.57 10^6/ul (4.0-5.4); Red Cell Distribution Width 14 % (10.5-15)
[2017-02-07 06:21] LABS: BUN/Creatinine Ratio 23.7 (8-20); Calcium 9.3 mg/dL (8.6-10.3); EGFR African American 100.5 (>60); EGFR Non-African American 78.2 (>60); Potassium 3.4 mmol/L (3.5-5.0)
[2017-02-07] MEDS: Levothyroxine TAB* 150 MCG TAB PO SCH (06:38)
[2017-02-07] MEDS: Insulin LISPRO* 1 UNITS UNIT SUBCUT SCH ×3 (08:47→18:02)
[2017-02-07] MEDS: Acetaminophen TAB* 325 MG PO PRN ×2 (08:48→21:21)
[2017-02-07] MEDS: Lisinopril TAB* 10 MG PO SCH (08:49)
[2017-02-07] MEDS: Metoprolol Succinate XL TAB* 25 MG PO SCH (08:49)
[2017-02-07] MEDS: Clopidogrel TAB* 75 MG PO SCH (08:49)
[2017-02-07] MEDS: Aspirin EC Low Dose* 81 MG TAB.EC PO SCH (08:49)
[2017-02-07] MEDS: predniSONE TAB* 20 MG PO SCH (08:49)
[2017-02-07] MEDS: amLODIPine TAB* 5 MG PO SCH (08:49)
[2017-02-07] MEDS: hydrALAZINE TAB* 100 MG ** ONE HUNDRED PO SCH ×3 (10:01→21:22)
[2017-02-07] MEDS: CMC:Isosorbide Mononitrate (NF) 20 MG TAB PO SCH (10:01)
[2017-02-07] MEDS: guaiFENesin/CODIEN 100MG-10MG* 5 ML UDC PO PRN ×2 (10:06→21:19)
--- NOTE | 2017-02-07 16:32 | PN ---
Subjective Date of Service: 02/07/17 Interval History: Patient states he feels moderately better than yesterday partially related to less disturbance of sleep last night. Patient continues to have SOB moderately improved since admission and CP unchanged since admission. Patient denies any other new complaints. Family History: Unchanged from Admission Social History: Unchanged from Admission Past Medical History: Unchanged from Admission Objective Active Medications: Acetaminophen (Tylenol Tab*) 650 mg PO Q6H PRN PRN Reason: pain/fever Last Admin: 02/07/17 08:48 Dose: 650 mg Albuterol/Ipratropium (Duoneb (Albuterol 2.5 Mg/Ipratropium 0.5 Mg)) 1 neb INH [id number] AWAKE [facility] Last Admin: 02/07/17 15:13 Dose: Not Given Amlodipine Besylate (Norvasc Tab*) 10 mg PO DAILY [facility] Last Admin: 02/07/17 08:49 Dose: 10 mg Aspirin (Aspirin Ec Low Dose*) 81 mg PO DAILY [facility] Last Admin: 02/07/17 08:49 Dose: 81 mg Clopidogrel Bisulfate (Plavix Tab*) 75 mg PO DAILY [facility] Last Admin: 02/07/17 08:49 Dose: 75 mg Dextrose (D50w Syringe 50 Ml*) 12.5 gm IV PUSH .FOR FS < 60 - SS PRN PRN Reason: FS < 60 Enoxaparin Sodium (Lovenox(*)) 40 mg SUBCUT 2200 [facility] Last Admin: 02/06/17 21:31 Dose: 40 mg Guaifenesin/Codeine Phosphate (Robitussin Ac 100mg-10mg*) 5 ml PO Q4H PRN PRN Reason: COUGH Last Admin: 02/07/17 10:06 Dose: 5 ml Hydralazine HCl (Apresoline Tab*) 100 mg PO TID [facility] Last Admin: 02/07/17 14:43 Dose: 100 mg Ceftriaxone Sodium 1,000 mg/ (Sodium Chloride) 50 mls @ 200 mls/hr IVPB Q24H [facility] Last Admin: 02/06/17 18:14 Dose: 200 mls/hr Azithromycin 250 mg/ Sodium (Chloride) 250 mls @ 250 mls/hr IVPB Q24H [facility] Last Admin: 02/06/17 19:02 Dose: 250 mls/hr Insulin Glargine (Lantus(*)) 10 units SUBCUT QPM [facility] Last Admin: 02/06/17 18:14 Dose: 10 units Insulin Human Lispro (Humalog*) 0 units SUBCUT AC [facility] PRN Reason: Protocol Last Admin: 02/07/17 12:50 Dose: 2 units Isosorbide Mononitrate (Isosorbide Mononitrate (Nf)) 20 mg PO DAILY [facility] PRN Reason: Protocol Last Admin: 02/07/17 10:01 Dose: 20 mg Levothyroxine Sodium (Synthroid Tab*) 150 mcg PO DAILY@0600 [facility] Last Admin: 02/07/17 06:38 Dose: 150 mcg Lisinopril (Prinivil Tab*) 40 mg PO DAILY [facility] Last Admin: 02/07/17 08:49 Dose: 40 mg Metoprolol Succinate (Toprol Xl Tab*) 25 mg PO DAILY [facility] Last Admin: 02/07/17 08:49 Dose: 25 mg Ondansetron HCl (Zofran Inj*) 4 mg IV Q4H PRN PRN Reason: NAUSEA/VOMITING Polyethylene Glycol/Electrolytes (Miralax*) 17 gm PO DAILY PRN PRN Reason: CONSTIPATION Prednisone (Deltasone Tab*) 40 mg PO DAILY [facility] Last Admin: 02/07/17 08:49 Dose: 40 mg Vital Signs 02/06/17 02/06/17 02/06/17 19:44 20:00 20:04 Temperature 97.6 F Pulse Rate 71 87 Respiratory 18 22 20 Rate Blood Pressure 165/48 (mmHg) O2 Sat by Pulse 96 96 Oximetry 02/06/17 02/07/17 02/07/17 23:28 08:00 08:27 Temperature 97.4 F Pulse Rate 89 Respiratory 16 16 Rate Blood Pressure 156/63 168/60 (mmHg) O2 Sat by Pulse 96 Oximetry Oxygen Devices in Use Now: None Appearance: Patient is an 81yo male who appears stated age and is sitting in the chair in [facility]. Eyes: No Scleral Icterus, PERRLA Ears/Nose/Mouth/Throat: NL Teeth, Lips, Gums, Clear Oropharnyx, Mucous Membranes Moist Neck: NL Appearance and Movements; NL JVP Respiratory: Symmetrical Chest Expansion and Respiratory Effort, - - Rhonchi throughout all lung raya with prolonged expiratory phase and end expiratory wheezes. Cardiovascular: NL Sounds; No Murmurs; No JVD, RRR, No Edema Abdominal: No Hepatosplenomegaly, - - Normal sounds, no distention, slight tenderness to palpation in low RUQ. Lymphatic: No Cervical Adenopathy Extremities: No Edema Skin: No Rash or Ulcers, No Nodules or Sclerosis Neurological: Alert and Oriented x 3, NL Gait, NL Muscle Strength and Tone Result Diagrams: 02/07/17 05:37 02/07/17 05:37 Microbiology and Other Data: Microbiology 02/06/17 09:07 Gram Stain - Final Sputum Assess/Plan/Problems-Billing Assessment: This is an 81 yo gentleman with mild COPD, CAD, DM, hypothyroidism and HTN who presented with c/o cough and CP. He has been admitted with a community acquired pneumonia. - Patient Problems (1) COPD exacerbation Current Visit: Yes Status: Acute Code(s): J44.1 - CHRONIC OBSTRUCTIVE PULMONARY DISEASE W (ACUTE) EXACERBATION SNOMED Code(s): 098567600 Comment: Moderate, diffuse rhonchi on exam Cont oral corticosteroids and DuoNebs (2) Community acquired pneumonia Current Visit: Yes Status: Acute Code(s): J18.9 - PNEUMONIA, UNSPECIFIED ORGANISM SNOMED Code(s): 435012119 Comment: Cont ceftriaxone/azithro Cultures still pending Stable cough and SOB Will repeat labs in AM to document continued improvement. (3) Diabetes Current Visit: Yes Status: Acute Code(s): E11.9 - TYPE 2 DIABETES MELLITUS WITHOUT COMPLICATIONS SNOMED Code(s): 23807886 Comment: BS intermittently in the 300s, but usually only slightly elevated. On Prednisone therapy. Prescribed Humulin-R at home at doses of 35U tid, he reports that he takes 25U ~ 3x weekly, as his glucose is generally <120 mg/dl HgbA1c 7% He reports a poor reaction to metformin and does not wish to start any alternate oral therapies Started low dose Lantus and monitor mealtime glucose (4) Hypertension Current Visit: Yes Status: Acute Code(s): I10 - ESSENTIAL (PRIMARY) HYPERTENSION SNOMED Code(s): 42020085 Comment: Moderately elevated HTN Cont home antihypertensives with increased hydralazine at this time (5) CAD (coronary artery disease) Current Visit: Yes Status: Acute Code(s): I25.10 - ATHSCL HEART DISEASE OF [place] CORONARY ARTERY W/O ANG PCTRS SNOMED Code(s): 95130324 Comment: No evidence of ACS, presenting c/o CP is most likely MS related to cough Cont home medical therapy (6) Hypothyroidism Current Visit: Yes Status: Acute Code(s): E03.9 - HYPOTHYROIDISM, UNSPECIFIED SNOMED Code(s): 39747501 Comment: TSH 67.5 Restarted levothyroxine at 150mcg Daily, recommend repeat TSH in 4-6 weeks (7) DVT prophylaxis Current Visit: Yes Status: Acute Code(s): MSA7578 - SNOMED Code(s): 152001667 Comment: SQ Lovenox (8) Full code status Current Visit: Yes Status: Acute Code(s): Z78.9 - OTHER SPECIFIED HEALTH STATUS SNOMED Code(s): 592797825 Status and Disposition: Inpatient. Patient offered a bed at [facility] but is not medically stable to go today due to SOB and uncontrolled HTN and Hyperglycemia. Will Discharge on Friday.
[2017-02-07] MEDS: cefTRIAXone VIAL(*) 1,000 MG in NS 0.9% 50 ML* 50 ML IVPB SCH (18:01)
[2017-02-07] MEDS: Insulin GLARGINE(*) 1 UNITS UNIT SUBCUT SCH (18:02)
[2017-02-07] MEDS: Azithromycin IV(*) 250 MG in NS 0.9% 250 ML* 250 ML IVPB SCH (21:06)
[2017-02-07] MEDS: Enoxaparin(*) 40 MG/0.4 ML SYR SUBCUT SCH (21:22)
[2017-02-08] MEDS: Albuterol/Ipratropium NEB.SOL* Albuterol 2.5 MG/Ipratropium 0.5 MG 3 ML INH SCH ×6 (04:09→23:06)
[2017-02-08] MEDS: Acetaminophen TAB* 325 MG PO PRN ×3 (05:25→22:34)
[2017-02-08] MEDS: Levothyroxine TAB* 150 MCG TAB PO SCH (05:26)
[2017-02-08 06:30] LABS: Hematocrit 34 % (42-52); Hemoglobin 11.9 g/dl (14.0-18.0); Mean Corpuscular HGB Conc 35 g/dl (31-36); Mean Corpuscular Hemoglobin 31 pg (27-31); Mean Corpuscular Volume 89 fL (80-94); Mean Platelet Volume 8 um3 (7.4-10.4); Red Cell Distribution Width 14 % (10.5-15); White Blood Count 7.7 10^3/ul (3.5-10.8)
[2017-02-08 06:49] LABS: Calcium 9.5 mg/dL (8.6-10.3); EGFR African American 111.5 (>60); EGFR Non-African American 86.7 (>60); Potassium 3.5 mmol/L (3.5-5.0)
[2017-02-08] MEDS: Insulin LISPRO* 1 UNITS UNIT SUBCUT SCH ×3 (08:47→17:40)
[2017-02-08] MEDS: hydrALAZINE TAB* 100 MG ** ONE HUNDRED PO SCH ×3 (10:18→22:35)
[2017-02-08] MEDS: CMC:Isosorbide Mononitrate (NF) 20 MG TAB PO SCH (10:19)
[2017-02-08] MEDS: Aspirin EC Low Dose* 81 MG TAB.EC PO SCH (10:19)
[2017-02-08] MEDS: Lisinopril TAB* 10 MG PO SCH (10:19)
[2017-02-08] MEDS: amLODIPine TAB* 5 MG PO SCH (10:19)
[2017-02-08] MEDS: predniSONE TAB* 20 MG PO SCH (10:20)
[2017-02-08] MEDS: Metoprolol Succinate XL TAB* 25 MG PO SCH (10:20)
[2017-02-08] MEDS: Clopidogrel TAB* 75 MG PO SCH (10:20)
--- NOTE | 2017-02-08 13:12 | PN ---
Subjective Date of Service: 02/08/17 Interval History: Patient states that he feels worse than yesterday because he was unable to sleep due to a noisy roommate. Patient denies any other acute complaints. Patient had an episode of palpitations overnight for several seconds without lightheadedness or chest pain. No recurrence at this time. Patient bradycardic around the 60s, metoprolol given due to palpitations. Family History: Unchanged from Admission Social History: Unchanged from Admission Past Medical History: Unchanged from Admission Objective Active Medications: Acetaminophen (Tylenol Tab*) 650 mg PO Q6H PRN PRN Reason: pain/fever Last Admin: 02/08/17 11:59 Dose: 650 mg Albuterol/Ipratropium (Duoneb (Albuterol 2.5 Mg/Ipratropium 0.5 Mg)) 1 neb INH [id number] AWAKE [facility] Last Admin: 02/08/17 11:32 Dose: 1 neb Amlodipine Besylate (Norvasc Tab*) 10 mg PO DAILY [facility] Last Admin: 02/08/17 10:19 Dose: 10 mg Aspirin (Aspirin Ec Low Dose*) 81 mg PO DAILY [facility] Last Admin: 02/08/17 10:19 Dose: 81 mg Clopidogrel Bisulfate (Plavix Tab*) 75 mg PO DAILY [facility] Last Admin: 02/08/17 10:20 Dose: 75 mg Dextrose (D50w Syringe 50 Ml*) 12.5 gm IV PUSH .FOR FS < 60 - SS PRN PRN Reason: FS < 60 Enoxaparin Sodium (Lovenox(*)) 40 mg SUBCUT 2200 [facility] Last Admin: 02/07/17 21:22 Dose: 40 mg Guaifenesin/Codeine Phosphate (Robitussin Ac 100mg-10mg*) 5 ml PO Q4H PRN PRN Reason: COUGH Last Admin: 02/07/17 21:19 Dose: 5 ml Hydralazine HCl (Apresoline Tab*) 100 mg PO TID [facility] Last Admin: 02/08/17 10:18 Dose: 100 mg Ceftriaxone Sodium 1,000 mg/ (Sodium Chloride) 50 mls @ 200 mls/hr IVPB Q24H [facility] Last Admin: 02/07/17 18:01 Dose: 200 mls/hr Azithromycin 250 mg/ Sodium (Chloride) 250 mls @ 250 mls/hr IVPB Q24H [facility] Last Admin: 02/07/17 21:06 Dose: 250 mls/hr Insulin Glargine (Lantus(*)) 10 units SUBCUT QPM [facility] Last Admin: 02/07/17 18:02 Dose: 10 units Insulin Human Lispro (Humalog*) 0 units SUBCUT AC [facility] PRN Reason: Protocol Last Admin: 02/08/17 12:37 Dose: 1 units Isosorbide Mononitrate (Isosorbide Mononitrate (Nf)) 20 mg PO DAILY [facility] PRN Reason: Protocol Last Admin: 02/08/17 10:19 Dose: 20 mg Levothyroxine Sodium (Synthroid Tab*) 150 mcg PO DAILY@0600 [facility] Last Admin: 02/08/17 05:26 Dose: 150 mcg Lisinopril (Prinivil Tab*) 40 mg PO DAILY [facility] Last Admin: 02/08/17 10:19 Dose: 40 mg Metoprolol Succinate (Toprol Xl Tab*) 25 mg PO DAILY [facility] Last Admin: 02/08/17 10:20 Dose: 25 mg Ondansetron HCl (Zofran Inj*) 4 mg IV Q4H PRN PRN Reason: NAUSEA/VOMITING Polyethylene Glycol/Electrolytes (Miralax*) 17 gm PO DAILY PRN PRN Reason: CONSTIPATION Prednisone (Deltasone Tab*) 40 mg PO DAILY [facility] Last Admin: 02/08/17 10:20 Dose: 40 mg Vital Signs 02/07/17 02/07/17 02/07/17 17:05 19:16 19:37 Temperature 97.7 F 97.7 F Pulse Rate 58 68 58 Respiratory 20 16 20 Rate Blood Pressure 160/60 160/40 (mmHg) O2 Sat by Pulse 97 97 Oximetry 02/07/17 02/07/17 02/07/17 19:46 19:51 20:00 Temperature 97.3 F Pulse Rate 58 60 Respiratory 16 20 16 Rate Blood Pressure 158/52 (mmHg) O2 Sat by Pulse 99 97 Oximetry 02/07/17 02/08/17 02/08/17 23:30 08:00 08:03 Temperature 97.6 F 97.5 F Pulse Rate 55 60 Respiratory 16 18 22 Rate Blood Pressure 140/46 148/54 (mmHg) O2 Sat by Pulse 93 97 Oximetry 02/08/17 11:33 Temperature Pulse Rate 50 Respiratory 16 Rate Blood Pressure (mmHg) O2 Sat by Pulse 987 Oximetry Oxygen Devices in Use Now: None Appearance: Patient is an 81yo male who appears stated age and is sitting comfortably in the bed in NAD. Eyes: No Scleral Icterus, PERRLA Ears/Nose/Mouth/Throat: NL Teeth, Lips, Gums, Clear Oropharnyx, Mucous Membranes Moist Neck: NL Appearance and Movements; NL JVP Respiratory: Symmetrical Chest Expansion and Respiratory Effort, - - Rhonchi heard in all lung raya, improved from yesterday. Cardiovascular: NL Sounds; No Murmurs; No JVD, RRR, No Edema Abdominal: No Hepatosplenomegaly, - - Normal sounds, slight tenderness over RUQ consistent with previous exam. Lymphatic: No Cervical Adenopathy Extremities: No Edema, No Clubbing, Cyanosis Skin: No Rash or Ulcers, No Nodules or Sclerosis Neurological: Alert and Oriented x 3, NL Sensation, NL Muscle Strength and Tone Result Diagrams: 02/08/17 06:17 02/08/17 06:17 Microbiology and Other Data: Microbiology 02/06/17 09:07 Gram Stain - Final Sputum Assess/Plan/Problems-Billing Assessment: This is an 81 yo gentleman with mild COPD, CAD, DM, hypothyroidism and HTN who presented with c/o cough and CP. He has been admitted with a community acquired pneumonia. - Patient Problems (1) COPD exacerbation Current Visit: Yes Status: Acute Code(s): J44.1 - CHRONIC OBSTRUCTIVE PULMONARY DISEASE W (ACUTE) EXACERBATION SNOMED Code(s): 175886157 Comment: Mild, diffuse rhonchi on exam Cont oral corticosteroids and DuoNebs (2) Community acquired pneumonia Current Visit: Yes Status: Acute Code(s): J18.9 - PNEUMONIA, UNSPECIFIED ORGANISM SNOMED Code(s): 940979240 Comment: Cont ceftriaxone/azithro Cultures still pending Stable cough and SOB Will repeat labs in AM to document continued improvement. (3) Diabetes Current Visit: Yes Status: Acute Code(s): E11.9 - TYPE 2 DIABETES MELLITUS WITHOUT COMPLICATIONS SNOMED Code(s): 03970742 Comment: BS consistently in the 300s for evening meal. Otherwise only slightly elevated. Continue SSI. On Prednisone therapy. Prescribed Humulin-R at home at doses of 35U tid, he reports that he takes 25U ~ 3x weekly, as his glucose is generally <120 mg/dl HgbA1c 7% He reports a poor reaction to metformin and does not wish to start any alternate oral therapies Started low dose Lantus and monitor mealtime glucose (4) Hypertension Current Visit: Yes Status: Acute Code(s): I10 - ESSENTIAL (PRIMARY) HYPERTENSION SNOMED Code(s): 89902327 Comment: BP in 140s with current regimen. Cont home antihypertensives with increased hydralazine at this time (5) CAD (coronary artery disease) Current Visit: Yes Status: Acute Code(s): I25.10 - ATHSCL HEART DISEASE OF [place] CORONARY ARTERY W/O ANG PCTRS SNOMED Code(s): 01687348 Comment: No evidence of ACS, presenting c/o CP is most likely MS related to cough Cont home medical therapy (6) Hypothyroidism Current Visit: Yes Status: Acute Code(s): E03.9 - HYPOTHYROIDISM, UNSPECIFIED SNOMED Code(s): 05869516 Comment: TSH 67.5 Restarted levothyroxine at 150mcg Daily, recommend repeat TSH in 4-6 weeks (7) Palpitations Current Visit: Yes Status: Acute Code(s): R00.2 - PALPITATIONS SNOMED Code (s): 49702659 Comment: Unknown cause, asymptomatic, will attempt to keep K+>4.0 (8) DVT prophylaxis Current Visit: Yes Status: Acute Code(s): BLO5311 - SNOMED Code(s): 372031780 Comment: SQ Lovenox (9) Full code status Current Visit: Yes Status: Acute Code(s): Z78.9 - OTHER SPECIFIED HEALTH STATUS SNOMED Code(s): 501122086 Status and Disposition: Inpatient. Patient offered a bed at [facility], Will Discharge on Friday.
[2017-02-08] MEDS: cefTRIAXone VIAL(*) 1,000 MG in NS 0.9% 50 ML* 50 ML IVPB SCH (17:12)
[2017-02-08] MEDS: Insulin GLARGINE(*) 1 UNITS UNIT SUBCUT SCH (17:39)
[2017-02-08] MEDS: Azithromycin IV(*) 250 MG in NS 0.9% 250 ML* 250 ML IVPB SCH (18:04)
[2017-02-08] MEDS ORDERED: Albuterol/Ipratropium NEB.SOL* Albuterol 2.5 MG/Ipratropium 0.5 MG 3 ML ONE (20:11)
[2017-02-08] MEDS: CMCS Melatonin (NF) 3 MG TAB PO PRN (22:33)
[2017-02-08] MEDS: guaiFENesin/CODIEN 100MG-10MG* 5 ML UDC PO PRN (22:34)
[2017-02-08] MEDS: Potassium Chlor TAB* 20 MEQ TAB.ER PO SCH (22:34)
[2017-02-08] MEDS: Enoxaparin(*) 40 MG/0.4 ML SYR SUBCUT SCH (22:35)
[2017-02-09] MEDS: Albuterol/Ipratropium NEB.SOL* Albuterol 2.5 MG/Ipratropium 0.5 MG 3 ML INH SCH ×6 (03:01→23:17)
[2017-02-09] MEDS: Levothyroxine TAB* 150 MCG TAB PO SCH (05:47)
[2017-02-09 05:57] LABS: Hematocrit 35 % (42-52); Hemoglobin 12.1 g/dl (14.0-18.0); Mean Corpuscular HGB Conc 34 g/dl (31-36); Mean Corpuscular Hemoglobin 31 pg (27-31); Mean Corpuscular Volume 91 fL (80-94); Mean Platelet Volume 8 um3 (7.4-10.4); Red Blood Count 3.88 10^6/ul (4.0-5.4); Red Cell Distribution Width 14 % (10.5-15); White Blood Count 7.9 10^3/ul (3.5-10.8)
[2017-02-09 06:17] LABS: BUN/Creatinine Ratio 24.7 (8-20); Calcium 9.3 mg/dL (8.6-10.3); EGFR African American 111.5 (>60); EGFR Non-African American 86.7 (>60); Potassium 3.5 mmol/L (3.5-5.0)
[2017-02-09] MEDS: Insulin LISPRO* 1 UNITS UNIT SUBCUT SCH ×3 (08:11→17:21)
[2017-02-09] MEDS: hydrALAZINE TAB* 100 MG ** ONE HUNDRED PO SCH ×3 (10:07→21:17)
[2017-02-09] MEDS: Lisinopril TAB* 10 MG PO SCH (10:08)
[2017-02-09] MEDS: CMC:Isosorbide Mononitrate (NF) 20 MG TAB PO SCH (10:08)
[2017-02-09] MEDS: amLODIPine TAB* 5 MG PO SCH (10:08)
[2017-02-09] MEDS: Clopidogrel TAB* 75 MG PO SCH (10:08)
[2017-02-09] MEDS: Potassium Chlor TAB* 20 MEQ TAB.ER PO SCH ×2 (10:08→21:17)
[2017-02-09] MEDS: Aspirin EC Low Dose* 81 MG TAB.EC PO SCH (10:08)
[2017-02-09] MEDS: predniSONE TAB* 20 MG PO SCH (10:08)
[2017-02-09] MEDS: Metoprolol Succinate XL TAB* 25 MG PO SCH (10:08)
--- NOTE | 2017-02-09 15:38 | PN ---
Subjective Date of Service: 02/09/17 Interval History: Patient again did not sleep well due to disturbance from roommate. Patient denies any new complaint. Patient states SOB and activity tolerance similar to yesterday. Family History: Unchanged from Admission Social History: Unchanged from Admission Past Medical History: Unchanged from Admission Objective Active Medications: Acetaminophen (Tylenol Tab*) 650 mg PO Q6H PRN PRN Reason: pain/fever Last Admin: 02/08/17 22:34 Dose: 650 mg Albuterol/Ipratropium (Duoneb (Albuterol 2.5 Mg/Ipratropium 0.5 Mg)) 1 neb INH [id number] AWAKE [facility] Last Admin: 02/09/17 14:38 Dose: 1 neb Amlodipine Besylate (Norvasc Tab*) 10 mg PO DAILY [facility] Last Admin: 02/09/17 10:08 Dose: 10 mg Aspirin (Aspirin Ec Low Dose*) 81 mg PO DAILY [facility] Last Admin: 02/09/17 10:08 Dose: 81 mg Clopidogrel Bisulfate (Plavix Tab*) 75 mg PO DAILY [facility] Last Admin: 02/09/17 10:08 Dose: 75 mg Dextrose (D50w Syringe 50 Ml*) 12.5 gm IV PUSH .FOR FS < 60 - SS PRN PRN Reason: FS < 60 Enoxaparin Sodium (Lovenox(*)) 40 mg SUBCUT 2200 [facility] Last Admin: 02/08/17 22:35 Dose: 40 mg Guaifenesin/Codeine Phosphate (Robitussin Ac 100mg-10mg*) 5 ml PO Q4H PRN PRN Reason: COUGH Last Admin: 02/08/17 22:34 Dose: 5 ml Hydralazine HCl (Apresoline Tab*) 100 mg PO TID [facility] Last Admin: 02/09/17 13:52 Dose: 100 mg Ceftriaxone Sodium 1,000 mg/ (Sodium Chloride) 50 mls @ 200 mls/hr IVPB Q24H [facility] Last Admin: 02/08/17 17:12 Dose: 200 mls/hr Insulin Glargine (Lantus(*)) 10 units SUBCUT QPM [facility] Last Admin: 02/08/17 17:39 Dose: 10 units Insulin Human Lispro (Humalog*) 0 units SUBCUT AC [facility] PRN Reason: Protocol Last Admin: 02/09/17 13:52 Dose: 1 units Isosorbide Mononitrate (Isosorbide Mononitrate (Nf)) 20 mg PO DAILY [facility] PRN Reason: Protocol Last Admin: 02/09/17 10:08 Dose: 20 mg Isosorbide Mononitrate (Isosorbide Mononitrate (Nf)) 20 mg PO DAILY@1600 [facility] PRN Reason: Protocol Levothyroxine Sodium (Synthroid Tab*) 150 mcg PO DAILY@0600 [facility] Last Admin: 02/09/17 05:47 Dose: 150 mcg Lisinopril (Prinivil Tab*) 40 mg PO DAILY [facility] Last Admin: 02/09/17 10:08 Dose: 40 mg Melatonin (Melatonin (Nf)) 3 mg PO BEDTIME PRN PRN Reason: INSOMNIA Last Admin: 02/08/17 22:33 Dose: 3 mg Metoprolol Succinate (Toprol Xl Tab*) 25 mg PO DAILY [facility] Last Admin: 02/09/17 10:08 Dose: 25 mg Mometasone Furoate/Formoterol Fumar (Dulera 100/5 Mdi*) 2 puff INH BID [facility] Ondansetron HCl (Zofran Inj*) 4 mg IV Q4H PRN PRN Reason: NAUSEA/VOMITING Polyethylene Glycol/Electrolytes (Miralax*) 17 gm PO DAILY PRN PRN Reason: CONSTIPATION Potassium Chloride (Klor Con Er Tab*) 20 meq PO BID [facility] Last Admin: 02/09/17 10:08 Dose: 20 meq Vital Signs 02/08/17 02/08/17 02/08/17 15:44 16:01 19:33 Temperature 97.7 F 97.6 F Pulse Rate 52 54 59 Respiratory 16 16 16 Rate Blood Pressure 146/49 148/58 (mmHg) O2 Sat by Pulse 97 98 98 Oximetry 02/08/17 02/08/17 02/09/17 20:00 23:44 03:26 Temperature 97.7 F 98.0 F Pulse Rate 62 55 55 Respiratory 14 14 16 Rate Blood Pressure 184/53 161/60 (mmHg) O2 Sat by Pulse 99 93 95 Oximetry 02/09/17 02/09/17 02/09/17 07:51 08:00 11:19 Temperature 97.7 F 97.9 F Pulse Rate 49 52 Respiratory 21 18 20 Rate Blood Pressure 177/53 138/53 (mmHg) O2 Sat by Pulse 97 96 Oximetry 02/09/17 14:39 Temperature Pulse Rate 61 Respiratory 16 Rate Blood Pressure (mmHg) O2 Sat by Pulse 99 Oximetry Oxygen Devices in Use Now: None Appearance: Patient is an 81yo male who appears stated age and is sitting comfortably in the bed in NAD. Eyes: No Scleral Icterus, PERRLA Ears/Nose/Mouth/Throat: NL Teeth, Lips, Gums, Clear Oropharnyx, Mucous Membranes Moist Neck: NL Appearance and Movements; NL JVP, Trachea Midline Respiratory: Symmetrical Chest Expansion and Respiratory Effort, - - Rhonchi with slight wheezes in all lung raya. Stable from yesterday. Cardiovascular: NL Sounds; No Murmurs; No JVD, RRR, No Edema Abdominal: No Hepatosplenomegaly, - - NL sounds. No distention. Tenderness in RUQ consistent with previous exam. Lymphatic: No Cervical Adenopathy Extremities: No Edema Skin: No Rash or Ulcers, No Nodules or Sclerosis Neurological: Alert and Oriented x 3 Result Diagrams: 02/09/17 05:39 02/09/17 05:39 Additional Lab and Data: 02/06/17 02/07/17 02/07/17 16:47 05:37 05:37 WBC 8.0 RBC 3.57 L Hgb 11.3 L Hct 32 L MCV 90 MCH 32 H MCHC 35 RDW 14 Plt Count 217 MPV 9 Neut % (Auto) 74.1 Lymph % (Auto) 18.3 L [place] % (Auto) 6.1 Eos % (Auto) 0.3 Baso % (Auto) 1.2 Absolute Neuts (auto) 5.9 Absolute Lymphs (auto) 1.5 Absolute Monos (auto) 0.5 Absolute Eos (auto) 0 Absolute Basos (auto) 0.1 Absolute Nucleated RBC 0.01 Nucleated RBC % 0.1 Sodium 137 Potassium 3.4 L Chloride 105 Carbon Dioxide 27 Anion Gap 5 BUN 22 Creatinine 0.93 Est GFR ( Amer) 100.5 Est GFR (Non-Af Amer) 78.2 BUN/Creatinine Ratio 23.7 H Glucose 172 H POC Glucose (mg/dL) 347 H Calcium 9.3 02/07/17 02/07/17 02/07/17 07:47 11:24 17:10 WBC RBC Hgb Hct MCV MCH MCHC RDW Plt Count MPV Neut % (Auto) Lymph % (Auto) [place] % (Auto) Eos % (Auto) Baso % (Auto) Absolute Neuts (auto) Absolute Lymphs (auto) Absolute Monos (auto) Absolute Eos (auto) Absolute Basos (auto) Absolute Nucleated RBC Nucleated RBC % Sodium Potassium Chloride Carbon Dioxide Anion Gap BUN Creatinine Est GFR ( Amer) Est GFR (Non-Af Amer) BUN/Creatinine Ratio Glucose POC Glucose (mg/dL) 123 H 181 H 299 H Calcium 02/08/17 02/08/17 02/08/17 06:17 06:17 07:49 WBC 7.7 RBC 3.80 L Hgb 11.9 L Hct 34 L MCV 89 MCH 31 MCHC 35 RDW 14 Plt Count 234 MPV 8 Neut % (Auto) 70.3 Lymph % (Auto) 20.8 L [place] % (Auto) 7.3 Eos % (Auto) 1.2 Baso % (Auto) 0.4 Absolute Neuts (auto) 5.4 Absolute Lymphs (auto) 1.6 Absolute Monos (auto) 0.6 Absolute Eos (auto) 0.1 Absolute Basos (auto) 0 Absolute Nucleated RBC 0.01 Nucleated RBC % 0.1 Sodium 134 Potassium 3.5 Chloride 102 Carbon Dioxide 29 Anion Gap 3 BUN 17 Creatinine 0.85 Est GFR ( Amer) 111.5 Est GFR (Non-Af Amer) 86.7 BUN/Creatinine Ratio 20.0 Glucose 111 H POC Glucose (mg/dL) 94 Calcium 9.5 02/08/17 02/08/17 02/09/17 12:04 16:26 05:39 WBC 7.9 RBC 3.88 L Hgb 12.1 L Hct 35 L MCV 91 MCH 31 MCHC 34 RDW 14 Plt Count 237 MPV 8 Neut % (Auto) 77.1 Lymph % (Auto) 15.6 L [place] % (Auto) 6.9 Eos % (Auto) 0.3 Baso % (Auto) 0.1 Absolute Neuts (auto) 6.1 Absolute Lymphs (auto) 1.2 Absolute Monos (auto) 0.5 Absolute Eos (auto) 0 Absolute Basos (auto) 0 Absolute Nucleated RBC 0.01 Nucleated RBC % 0.1 Sodium Potassium Chloride Carbon Dioxide Anion Gap BUN Creatinine Est GFR ( Amer) Est GFR (Non-Af Amer) BUN/Creatinine Ratio Glucose POC Glucose (mg/dL) 133 H 265 H Calcium 02/09/17 02/09/17 02/09/17 05:39 07:59 12:25 WBC RBC Hgb Hct MCV MCH MCHC RDW Plt Count MPV Neut % (Auto) Lymph % (Auto) [place] % (Auto) Eos % (Auto) Baso % (Auto) Absolute Neuts (auto) Absolute Lymphs (auto) Absolute Monos (auto) Absolute Eos (auto) Absolute Basos (auto) Absolute Nucleated RBC Nucleated RBC % Sodium 133 Potassium 3.5 Chloride 101 Carbon Dioxide 27 Anion Gap 5 BUN 21 Creatinine 0.85 Est GFR ( Amer) 111.5 Est GFR (Non-Af Amer) 86.7 BUN/Creatinine Ratio 24.7 H Glucose 158 H POC Glucose (mg/dL) 115 H 140 H Calcium 9.3 Microbiology and Other Data: Microbiology 02/06/17 09:07 Gram Stain - Final Sputum Assess/Plan/Problems-Billing Assessment: This is an 81 yo gentleman with mild COPD, CAD, DM, hypothyroidism and HTN who presented with c/o cough and CP. He has been admitted with a community acquired pneumonia. - Patient Problems (1) COPD exacerbation Current Visit: Yes Status: Acute Code(s): J44.1 - CHRONIC OBSTRUCTIVE PULMONARY DISEASE W (ACUTE) EXACERBATION SNOMED Code(s): 831339171 Comment: Mild, diffuse rhonchi on exam Stop Corticosteroids, Begin Dulera. Continue Duonebs. (2) Community acquired pneumonia Current Visit: Yes Status: Acute Code(s): J18.9 - PNEUMONIA, UNSPECIFIED ORGANISM SNOMED Code(s): 678623695 Comment: Cont ceftriaxone. Switch to Cefpodoxime at D/C Azithromycin complete. Cultures still pending Stable cough and SOB Will repeat labs in AM to document continued improvement. (3) Diabetes Current Visit: Yes Status: Acute Code(s): E11.9 - TYPE 2 DIABETES MELLITUS WITHOUT COMPLICATIONS SNOMED Code(s): 92871477 Comment: BS consistently relatively well controlled. Continue basal and SSI. Prescribed Humulin-R at home at doses of 35U tid, he reports that he takes 25U ~ 3x weekly, as his glucose is generally <120 mg/dl HgbA1c 7% He reports a poor reaction to metformin and does not wish to start any alternate oral therapies (4) Hypertension Current Visit: Yes Status: Acute Code(s): I10 - ESSENTIAL (PRIMARY) HYPERTENSION SNOMED Code(s): 44242419 Comment: SBP consistently up to 180s. Increase Imdur to BID 7hrs apart. Cont home antihypertensives with increased hydralazine at this time (5) CAD (coronary artery disease) Current Visit: Yes Status: Acute Code(s): I25.10 - ATHSCL HEART DISEASE OF [place] CORONARY ARTERY W/O ANG PCTRS SNOMED Code(s): 96111874 Comment: No evidence of ACS, presenting c/o CP is most likely MS related to cough Cont home medical therapy (6) Hypothyroidism Current Visit: Yes Status: Acute Code(s): E03.9 - HYPOTHYROIDISM, UNSPECIFIED SNOMED Code(s): 38216914 Comment: TSH 67.5 Restarted levothyroxine at 150mcg Daily, recommend repeat TSH in 4-6 weeks (7) Palpitations Current Visit: Yes Status: Acute Code(s): R00.2 - PALPITATIONS SNOMED Code (s): 81309334 Comment: Unknown cause, asymptomatic, will attempt to keep K+>4.0 (8) DVT prophylaxis Current Visit: Yes Status: Acute Code(s): QIC6669 - SNOMED Code(s): 480494604 Comment: SQ Ankushx (9) Full code status Current Visit: Yes Status: Acute Code(s): Z78.9 - OTHER SPECIFIED HEALTH STATUS SNOMED Code(s): 046538973 Status and Disposition: Inpatient. Patient offered a bed at [facility], Will Discharge on Friday.
[2017-02-09] MEDS ORDERED: ISOSORBIDE MONONITRATE 20 MG PO SCH (16:00)
[2017-02-09] MEDS: Insulin GLARGINE(*) 1 UNITS UNIT SUBCUT SCH (17:21)
[2017-02-09] MEDS: cefTRIAXone VIAL(*) 1,000 MG in NS 0.9% 50 ML* 50 ML IVPB SCH (17:22)
[2017-02-09] MEDS: Mometasone/Formoter 100/5 MDI INH SCH (19:40)
[2017-02-09] MEDS: Enoxaparin(*) 40 MG/0.4 ML SYR SUBCUT SCH (21:17)
[2017-02-09] MEDS: CMCS Melatonin (NF) 3 MG TAB PO PRN (21:18)
[2017-02-09] MEDS: guaiFENesin/CODIEN 100MG-10MG* 5 ML UDC PO PRN (21:26)
[2017-02-10] MEDS: Albuterol/Ipratropium NEB.SOL* Albuterol 2.5 MG/Ipratropium 0.5 MG 3 ML INH SCH ×2 (03:00→08:01)
[2017-02-10] MEDS: Levothyroxine TAB* 150 MCG TAB PO SCH (05:46)
[2017-02-10 06:23] LABS: Hematocrit 34 % (42-52); Hemoglobin 11.7 g/dl (14.0-18.0); Mean Corpuscular HGB Conc 35 g/dl (31-36); Mean Corpuscular Hemoglobin 32 pg (27-31); Mean Corpuscular Volume 91 fL (80-94); Mean Platelet Volume 8 um3 (7.4-10.4); Red Blood Count 3.72 10^6/ul (4.0-5.4); Red Cell Distribution Width 14 % (10.5-15); White Blood Count 7.7 10^3/ul (3.5-10.8)
[2017-02-10 06:37] LABS: BUN/Creatinine Ratio 24.7 (8-20); Calcium 9.4 mg/dL (8.6-10.3); EGFR African American 105.8 (>60); EGFR Non-African American 82.2 (>60); Potassium 3.7 mmol/L (3.5-5.0)
[2017-02-10 07:57] VITALS: BP 174/52
[2017-02-10] MEDS: Mometasone/Formoter 100/5 MDI INH SCH (08:03)
[2017-02-10] MEDS: Insulin LISPRO* 1 UNITS UNIT SUBCUT SCH (08:52)
[2017-02-10] MEDS: Clopidogrel TAB* 75 MG PO SCH (08:52)
[2017-02-10] MEDS: Aspirin EC Low Dose* 81 MG TAB.EC PO SCH (08:52)
[2017-02-10] MEDS: Potassium Chlor TAB* 20 MEQ TAB.ER PO SCH (08:53)
[2017-02-10] MEDS: Lisinopril TAB* 10 MG PO SCH (08:53)
[2017-02-10] MEDS: amLODIPine TAB* 5 MG PO SCH (08:53)
[2017-02-10] MEDS: Acetaminophen TAB* 325 MG PO PRN (09:01)
[2017-02-10] MEDS: CMC:Isosorbide Mononitrate (NF) 20 MG TAB PO SCH (09:02)
[2017-02-10] MEDS: hydrALAZINE TAB* 100 MG ** ONE HUNDRED PO SCH (09:02)
[2017-02-10] MEDS: Metoprolol Succinate XL TAB* 25 MG PO SCH (10:00)
--- NOTE | 2017-02-10 10:09 | DS ---
CC: Rico Garcia * DATE OF ADMISSION: 02/04/17 DATE OF DISCHARGE: 02/10/17 PRIMARY CARE PROVIDER: Alice Madrid MD. ATTENDING PHYSICIAN WHILE IN THE HOSPITAL: Avani Glover MD * (DICTATED BY SUSI MARES) PRIMARY DISCHARGE DIAGNOSES: Community-acquired pneumonia and chronic obstructive pulmonary disease exacerbation. SECONDARY DISCHARGE DIAGNOSES: 1. Hypertension. 2. Coronary artery disease, status post PCI. 3. Hypothyroidism. 4. Insulin dependent diabetes mellitus. STUDIES DONE WHILE IN THE HOSPITAL: Chest x-ray on 02/04/17 read as no active cardiopulmonary disease. Brain CT from 02/04/17 read as no acute intracranial process, stigmata of chronic small vessel ischemic disease without change. Venous Doppler study from 02/04/17 read as no left lower extremity deep vein thrombosis. Chest thorax CTA read as no pulmonary arterial filling defect suggesting pulmonary embolism, minimal patchy airspace disease to the left lower lobe. EKG from 02/04/17 shows normal sinus rhythm, early repolarization in leads V2 and V3. No other ST segment changes. Normal axes. No other significant abnormalities. Prolonged MN interval. EKG from 02/05/17 shows no significant changes, persistent early repolarization, or ST abnormalities. EKG from 02/08/17 shows sinus bradycardia with prolonged MN interval. No other significant abnormalities or changes. Chest x-ray from 02/06/17 read as right middle lobe infiltrate, suggest followup. MEDICATIONS AT DISCHARGE: 1. Toprol succinate XL 25 mg p.o. daily. 2. Plavix 75 mg p.o. daily. 3. Amlodipine 10 mg p.o. daily. 4. Lisinopril 40 mg p.o. daily. 5. Hydralazine 100 mg p.o. t.i.d. 6. Isosorbide mononitrate 20 mg p.o. daily at 1600 scheduled. 7. Tylenol 650 mg p.o. q. 6 hours as needed for pain. 8. DuoNeb 1 nebulization inhalation q. 4 hours while awake as needed for wheezing. 9. Aspirin 81 mg p.o. daily. 10. Tessalon 100 mg p.o. t.i.d. 11. Cefpodoxime 200 mg p.o. q. 12 hours for 8 days. 12. Lantus 10 units subcutaneous at night. 13. Insulin lispro sliding scale subcutaneous before meals. 14. Levothyroxine 150 mcg p.o. daily. 15. Melatonin 3 mg p.o. at bedtime. 16. Dulera 100/5 two puffs inhalation b.i.d. 17. MiraLAX 17 g p.o. daily as needed for constipation. 18. Potassium chloride 10 mEq p.o. b.i.d. Discontinued medications: 1. Insulin NPH 25 units subcutaneous t.i.d. 2. Hydralazine 100 mg p.o. b.i.d. HOSPITAL COURSE: This is a brief summary of the patient's admission. For more details, please see the history and physical from SUSI Haq, from 02/04. In brief, the patient is an 81-year-old male with known history of CAD, COPD, hypertension, hypothyroidism, and insulin dependent diabetes mellitus who presented with complaints of shortness of breath, right side chest pain and cough. The patient was found to have an infiltrate on CT scan and was believed to have chest wall pain and was admitted for pneumonia with COPD exacerbation started on antibiotics, DuoNeb inhalation treatment, and prednisone. The patient improved slowly with antibiotics, supportive care, and prednisone. The patient was taking isophane insulin at home, but rarely took it due to normal glycemia. The patient was monitored while in the hospital and started on 10 units Lantus insulin daily. The patient was generally only slightly hyperglycemic, but occasionally had blood sugars in the 300s, which was to be expected due the patient's prednisone therapy. Patient also had hypertension often into the 180 range and usually above 150 systolic. Patient's blood pressure medications were increased from hydralazine 100 p.o. b.i.d. to 100 p.o. t.i.d. and isosorbide mononitrate was increased from 20 mg p.o. daily to 20 mg p.o. b.i.d. Patient's blood pressure remained elevated usually in the 150s, but began to drift down more to the 140s and 130s systolic. Patient's lung exam showed slow improvement, but he continues to have rhonchorous lung sounds in all lobes. Patient was evaluated by physical therapy and occupational therapy, and showed needs for continued physical therapy at discharge. The patient also showed fatigue with walking. The patient was evaluated by [facility] and was accepted. A bed was available on February 07, but the patient did not feel ready to go and his pulmonary exam was not as improved as it could have been, so the patient was kept over the weekend for admission on Friday. On the night of February 07 and February 08, the patient had episode of palpitations without lightheadedness. Patient's electrolytes, his potassium was at the low end of normal and it was supplemented. Patient did not have any recurrences of his palpitations nor chest pain or worsening shortness of breath. The patient continued to have chest wall pain consistent with at the time of his admission throughout the course of his hospital stay without changes that was continually reproducible by palpation and did not change. The patient also had a cough, which was responsive to Tylenol with codeine and consistently brought up white sputum which decreased throughout his hospital stay. The patient also found to have a TSH of 67.5 on admission and admits to not taking his levothyroxine for an unknown amount of time. Levothyroxine was restarted at 150 mcg per day. No other issues came up during the patient's hospital stay. On the day of discharge, the patient's heart rate was 52, which is significantly lower than it had been, though the patient had been consistently with heart rates between 50 and 70 during his hospital stay. The patient's metoprolol succinate will be held on the day of discharge and he will continued to be monitored at [facility] for bradycardia. DISCHARGE PLAN: The patient will be discharged to [facility] for short term rehab with physical therapy and occupational therapy. The patient finished his course of azithromycin while in the hospital and finished 5 days of prednisone. The patient will be continued on cefpodoxime 200 mg b.i.d. for 8 days starting on 02/10/17. The patient was also started on Dulera inhaler, which he tolerated well, on 02/09/17 and should be continued on this as maintenance therapy for his COPD. The patient also have continued DuoNebs as needed every 4 hours for wheezing or shortness of breath. The patient should have a heart healthy diet, caffeine okay. The patient needs assistance to ambulate, but should engage in activity as tolerated and work with PT and OT as much as possible. The patient will be continued to be supplemented with potassium to attempt to keep his potassium above 4. This does not need to be monitored closely unless the patient has further episodes of palpitations. The patient should have a TSH checked in 4 to 6 weeks from 02/04/17 to document improvement in his TSH and assess efficacy of levothyroxine therapy. The patient should return to the hospital for recurrence of fevers, chills, severe shortness of breath, or chest pain that could be cardiac related. The patient will be continued on glargine insulin, which was started in the hospital and sliding scale insulin per protocol with BMI of 23. TIME SPENT: Approximately 60 minutes was spent on this discharge, half of which spent [id number] with the patient obtaining history and physical and explaining the discharge plan. SUSI MARES [id number]/CPS #: [id number]
== END 2017-02-10 11:10 | DRG 194 ==
LOC: ED 11:49 → MED 17:00 → OBSVTOIN 17:45
PROVIDERS: ADMIT Internal Medicine; ATTEND Internal Medicine
DX: J18.9 Pneumonia, unspecified organism (principal); J44.1 Chronic obstructive pulmonary disease with (acute) exacerbation; J44.0 Chronic obstructive pulmonary disease with (acute) lower respiratory infection; E11.65 Type 2 diabetes mellitus with hyperglycemia; R00.1 Bradycardia, unspecified; I10 Essential (primary) hypertension; I25.10 Atherosclerotic heart disease of native coronary artery without angina pectoris; Z95.5 Presence of coronary angioplasty implant and graft; E03.9 Hypothyroidism, unspecified; Z79.4 Long term (current) use of insulin; Z79.02 Long term (current) use of antithrombotics/antiplatelets; Z79.82 Long term (current) use of aspirin; Z90.49 Acquired absence of other specified parts of digestive tract; Z87.891 Personal history of nicotine dependence; Z88.8 Allergy status to other drugs, medicaments and biological substances; Z98.42 Cataract extraction status, left eye; Z98.41 Cataract extraction status, right eye; Z83.3 Family history of diabetes mellitus
CPT/HCPCS: 36415; 70450; 71010; 71020; 71275; 80048; 80053; 83036; 83605; 83880; 84443; 84484; 85025; 85379; 85652; 86140; 87040; 87070; 87077; 87205; 87502; 93005; 94640; 94760; A9270-GY; G8978-GP-CJ; G8979-GP-CI; G8980-GP-CI; G8987-GO-CJ; G8988-GO-CI; J0456; J0696; J1650; J2060; J2930; J7512; Q9967

== ENCOUNTER 2018-11-29 09:47 | Observation (INO) | payer MEDICARE ==
--- NOTE | 2018-11-29 10:10 | ED ---
Shortness of Breath - HPI Summary HPI Summary: The pt is an 83 yr old male presenting to [facility] c/o SOB with the current episode beginning around 0300 this morning when he woke up. He mentions that he has had difficulty breathing and problems with coughing for the past year. He woke up at 0300 this morning gasping for breath describing it as something across his stomach preventing him from breathing. He notes that his symptoms are worse at night and when lying down flat. He reports chest pain with productive cough, feeling feverish, BLE edema, and growling sounds from the abdomen but denies any abd pain. He states he sleeps sitting up as it alleviates the SOB. At home he uses O2, ASA, and formerly used an inhaler. The pt is a former smoker and has Hx of COPD, CAD, HTN, chronic bronchitis, pneumonia, and seasonal allergies. - History of Current Complaint Chief Complaint: EDShortnessOfBreath Time Seen by Provider: 11/29/18 09:53 Hx Obtained From: Patient Onset/Duration: Lasting Hours - Current episode starting 0300 this morning, Lasting Weeks, Still Present Timing: Constant Current Severity: Moderate Dyspnea At: Orthopena Aggravating Factors: Recumbent Position Alleviating Factors: Upright Position Associated Signs & Symptoms: Cough (Productive), Chest Pain w/Cough, Fever, Edema - BLE - Allergy/Home Medications Allergies/Adverse Reactions: Allergies Allergy/AdvReac Type Severity Reaction Status Date / Time amlodipine [From Norvasc] Allergy Unknown Verified 11/29/18 14:10 Reaction Details atorvastatin [From Lipitor] Allergy Unknown Verified 11/29/18 14:10 Reaction Details dipyridamole Allergy Unknown Verified 11/29/18 14:10 [From Persantine] Reaction Details eplerenone [From Inspra] Allergy Unknown Verified 11/29/18 14:10 Reaction Details ezetimibe [From Vytorin] Allergy Unknown Verified 11/29/18 14:10 Reaction Details gemfibrozil [From Lopid] Allergy Unknown Verified 11/29/18 14:10 Reaction Details rosuvastatin [From Crestor] Allergy Unknown Verified 11/29/18 14:10 Reaction Details simvastatin [From Vytorin] Allergy Unknown Verified 11/29/18 14:10 Reaction Details Home Medications: Home Medications Doxepin (NF) 25 mg PO DAILY 11/29/18 [History Confirmed 11/29/18] Irbesartan (NF) [Avapro (NF)] 300 mg PO DAILY 11/29/18 [History Confirmed ] Levothyroxine TAB* [Synthroid 150 MCG TAB*] 200 mcg PO DAILY@0600 11/29/18 [ History] Oxybutynin Chloride 5 mg PO BID 11/29/18 [History Confirmed 11/29/18] Pantoprazole TAB * [Protonix TAB*] 40 mg PO DAILY 11/29/18 [History Confirmed ] Rivaroxaban TAB(*) [Xarelto 20 mg] 20 mg PO DAILY 11/29/18 [History Confirmed ] Rosuvastatin (NF) [Crestor (NF)] 10 mg PO 1700 11/29/18 [History Confirmed 11/29] Spironolactone TAB* [Aldactone TAB*] 25 mg PO DAILY 11/29/18 [History Confirmed 11/29/18] Tamsulosin CAP* [Flomax CAP*] 0.4 mg PO DAILY 11/29/18 [History Confirmed ] Torsemide TAB* [Demadex*] 10 mg PO DAILY 11/29/18 [History Confirmed 11/29/18] metFORMIN* [Glucophage 500 MG TAB *] 500 mg PO BID 11/29/18 [History Confirmed 11/29/18] PMH/Surg Hx/FS Hx/Imm Hx Endocrine/Hematology History: Reports: Hx Diabetes - IDDM with neuropathy, Hx Thyroid Disease Cardiovascular History: Reports: Hx Coronary Artery Disease, Hx Hypertension Respiratory History: Reports: Hx Chronic Bronchitis, Hx Chronic Obstructive Pulmonary Disease (COPD), Hx Pneumonia, Hx Seasonal Allergies Denies: Hx Asthma GI History: Reports: Hx Gall Bladder Disease - blockage Musculoskeletal History: Reports: Hx Arthritis Sensory History: Reports: Hx Cataracts, Hx Contacts or Glasses, Hx Macular Degeneration - scraping out & shots in eye (L), Hx Vision Problem - Stents Denies: Hx Hearing Aid Opthamlomology History: Reports: Hx Cataracts, Hx Contacts or Glasses, Hx Macular Degeneration - scraping out & shots in eye (L), Hx Vision Problem - Stents Neurological History: Reports: Hx Headaches, Hx Migraine Denies: Hx Seizures, Hx Spinal Cord Injury Psychiatric History: Reports: Hx Depression - Surgical History Surgical History: Yes Surgery Procedure, Year, and Place: CATARACTS, CARDIAC CATH Infectious Disease History: No Infectious Disease History: Denies: Traveled Outside the [place] in Last 30 Days - Family History Known Family History: Positive: Diabetes Negative: Hypertension - Social History Alcohol Use: Occasionally Hx Substance Use: No Substance Use Type: Reports: None Hx Tobacco Use: Yes Smoking Status (MU): Former Smoker Type: Cigarettes Review of Systems Positive: Fever Positive: Chest Pain - secondary to cough Positive: Shortness Of Breath, Cough - productive Positive: Other - Positive - "growling" sounds coming from abdominal region.. Negative: Abdominal Pain Positive: Edema - BLE All Other Systems Reviewed And Are Negative: Yes Physical Exam - Summary Physical Exam Summary: Constitutional: Elderly male, mild distress. Skin: Warm, Dry HENT: Normocephalic; Atraumatic Eyes: Conjunctiva normal Neck: Musculoskeletal ROM normal neck. (-) JVD, (-) Stridor, (-) Nuchal rigidity Cardio: Rhythm regular, rate normal, Heart sounds normal; Intact distal pulses; Radial pulses are 2+ and symmetric. (-) Murmur Pulmonary/Chest wall: Increased bronchal breathing, bilateral rhonchi. Abd: Soft, (-) tenderness, (-) Distension, (-) Guarding, (-) Rebound Musculoskeletal: 1+ edema to bilateral lower extremities. Lymph: (-) Cervical adenopathy Neuro: Alert, Oriented x3 Psych: Mood and affect Normal Triage Information Reviewed: Yes Vital Signs On Initial Exam: Initial Vitals Temp Pulse Resp BP Pulse Ox 98.3 F 83 20 115/99 91 11/29/18 09:47 11/29/18 09:47 11/29/18 09:47 11/29/18 09:47 11/29/18 09:47 Vital Signs Reviewed: Yes Diagnostics - Vital Signs Vital Signs Temp Pulse Resp BP Pulse Ox 11/29/18 09:47 98.3 F 83 20 115/99 91 - Laboratory Result Diagrams: 11/29/18 10:32 11/29/18 10:32 Lab Statement: Any lab studies that have been ordered have been reviewed, and results considered in the medical decision making process. - Radiology CXR Radiology Interpretation Completed By: Radiologist Summary of Radiographic Findings: IMPRESSIONS: No evidence of acute cardiopulmonary disease. This report has been reviewed by an ED physician. - EKG 1000 Cardiac Rate: NL - @ 79BPM EKG Rhythm: Sinus Rhythm EKG Comparison: No Significant Change - From prior EKG in 2017. Summary of EKG Findings: An EKG at 1000 reveals normal sinus rhythm 79 BPM, prolonged DC, Q waves in V1-V3, No STEMI. Re-Evaluation - Re-Evaluation First Eval Re-Evaluation Time: 12:15 Change: Improved Comment: Patient reports slight improvement with neb. Still feels dyspneic, patient lives alone and states to feel more comfortable being observed overnight. Plan to admit hospitalist with treatment for COPD exacerbation Second Eval Re-Evaluation Time: 14:50 Comment: CT was negative for PE. Troponin was negative. Concern for mild pulmonary edema will check bmp. Course/Dx - Course Course Of Treatment: 83-year-old male history of COPD and coronary artery disease presents with shortness of breath and cough progressively worsening. Vital signs notable for hypoxia to 93%, slightly inc work of breathing. Lungs bilateral rhonchi. Shortness of breath ddx: Most likely COPD try neb. Also consider: PNA - mild sputum production, no fevers or chills. No leukocytosis. CXR w/o infiltrate. Low suspicion. PTX - breath sounds equal, no risk factors for PTX, CXR w/o e/o PTX. ACS - no CP, no EKG changes, initial trop not elevated. Low suspicion. CHF -unclear history of heart failure, BNP elevated to 300. Reports he had a diuretic at home therefore suspect some element of heart failure. PE - recent negative CT chest. - Diagnoses Provider Diagnoses: COPD exacerbation - Physician Notifications Discussed Care of Patient With: Sushila Mendez - Hospitalist Time Discussed With Above Provider: 12:30 Instructed by Provider To: Admit As Observation - Dr. Mendez accepts the pt for admission. Discharge - Sign-Out/Discharge Documenting (check all that apply): Patient Departure - Patient is accepted for admission by Dr. Mendez. Patient Received Moderate/Deep Sedation with Procedure: No - Discharge Plan Condition: Stable Disposition: ADMITTED TO [facility] - Billing Disposition and Condition Condition: STABLE Disposition: Admitted to [facility] - Attestation Statements Document Initiated by Scribe: Yes Documenting Scribe: Elio Khoury Provider For Whom Scribe is Documenting (Include Credential): Dr. Yuan Marquez MD Scribe Attestation: I, Elio Khoury, scribed for Dr. Yuan Marquez MD on 11/29/18 at 1735. Scribe Documentation Reviewed: Yes Provider Attestation: The documentation as recorded by the scribe, Elio Khoury accurately reflects the service I personally performed and the decisions made by me, Dr. Yuan Marquez MD Status of Scribe Document: Viewed
[2018-11-29] MEDS ORDERED: Albuterol/Ipratropium NEB.SOL* Albuterol 2.5 MG/Ipratropium 0.5 MG 3 ML INH ONE (10:28)
[2018-11-29 10:38] LABS: ABS Eosinophils 0.2 10^3/ul (0-0.6); ABS Lymphocytes 0.7 10^3/ul (1.0-4.8); ABS Monocytes 0.6 10^3/ul (0-0.8); ABS Neutrophils 10.4 10^3/ul (1.5-7.7); Eosinophil % 1.4 %; Hematocrit 34 % (42-52); Hemoglobin 11.7 g/dL (14.0-18.0); Lymphocyte % 5.9 %; Mean Corpuscular HGB Conc 34 g/dL (31-36); Mean Corpuscular Hemoglobin 31 pg (27-31); Mean Corpuscular Volume 91 fL (80-94); Mean Platelet Volume 8.7 fL (7.4-10.4); Platelet Count 200 10^3/uL (150-450); Red Blood Count 3.75 10^6 /uL (4.18-5.48); Red Cell Distribution Width 13 % (10-15); White Blood Count 11.9 10^3/uL (3.5-10.8)
[2018-11-29 10:53] LABS: INR 1.12 (0.82-1.09)
[2018-11-29 10:56] LABS: Albumin 3.7 g/dL (3.2-5.2); Albumin/Globulin Ratio 1.2 (1-3); BUN/Creatinine Ratio 26.2 (8-20); Calcium 10.1 mg/dL (8.6-10.3); EGFR African American 80.1 (>60); EGFR Non-African American 66.2 (>60); Globulin 3.2 g/dL (2-4); Total Bilirubin 0.3 mg/dL (0.2-1.0); Total Protein 6.9 g/dL (6.4-8.9)
[2018-11-29 10:58] LABS: Troponin I 0.01 ng/mL (<0.04)
[2018-11-29] MEDS ORDERED: methylPREDNISolone 125 MG* 2 ML VIAL IV ONE (12:14)
[2018-11-29] MEDS ORDERED: Albuterol 0.5% CONC NEB.SOL* 5 MG/ML 20 ml BOT INH ONE (12:20)
[2018-11-29] MEDS ORDERED: Azithromycin TAB* 250 MG PO ONE (12:25)
[2018-11-29] MEDS ORDERED: Ondansetron INJ* 2 MG/ML VIAL IV PRN (13:05)
[2018-11-29] MEDS ORDERED: Acetaminophen TAB* 325 MG PO PRN (13:05)
[2018-11-29] MEDS ORDERED: Benzonatate CAP* 100 MG PO PRN (13:05)
[2018-11-29] MEDS ORDERED: Albuterol 2.5 MG/3 ML NEB.SOL* (0.083%) INH PRN (13:05)
[2018-11-29 13:19] LABS: TSH (Thyroid Stimulating Horm) 0.03 mcIU/mL (0.34-5.60)
[2018-11-29] MEDS ORDERED: Enoxaparin(*) 40 MG/0.4 ML SYR SUBCUT SCH (14:00)
[2018-11-29] MEDS ORDERED: Spiriva Inhaler DEVICE* 1 EACH DEVICE INH SCH (14:00)
[2018-11-29 14:49] LABS: T4, Total 11.01 mcg/dL (6.09-12.23)
[2018-11-29] MEDS ORDERED: Albuterol/Ipratropium NEB.SOL* Albuterol 2.5 MG/Ipratropium 0.5 MG 3 ML INH SCH (15:00)
[2018-11-29 17:03] LABS: Troponin I 0.04 ng/mL (<0.04)
[2018-11-29] MEDS: CMC:Isosorbide Mononitrate (NF) 20 MG TAB PO SCH (17:14)
[2018-11-29] MEDS: CMC:Rosuvastatin (NF) 10 MG TAB PO SCH (17:15)
--- NOTE | 2018-11-29 19:13 | HP ---
CC: [facility] * ADMISSION HISTORY AND PHYSICAL: DATE OF ADMISSION: 11/29/18 PRIMARY CARE PROVIDER: Dr. Clemons through [facility]. MY ATTENDING WHILE IN THE HOSPITAL: Dr. Sushila Mendez.* (DICTATED BY SUSI MARES) CHIEF COMPLAINT: Shortness of breath x12 hours. HISTORY OF PRESENT ILLNESS: Mr. Burgos is an 83-year-old male with past medical history significant for high blood pressure; coronary artery disease, status post 5 stents, with stable chronic angina; diabetes mellitus type 2; and COPD, not on any medications, who presents to the emergency department after this morning he woke up to go to the bathroom and felt odd, walked to the bathroom and walked back and developed significant shortness of breath with audible rhonchi. No fever or chills or other significant symptoms. The patient has had a runny nose for 2 days, which is abnormal for him. The patient has a chronic cough, which is intermittently productive of sputum, which has not gotten worse. The patient has intermittent swelling in his legs, which is always better when he puts on support stockings and then it comes back. It is not responsive to diuretics as far as he can tell. The patient has no dizziness. 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 The patient has had no recent sick contacts, no recent changes in his medications. The patient states he has been taking all of his medications per routine. The patient was recently taken off his inhalers for his COPD because his primary said he was doing well. The patient denies any hemoptysis. The patient's shortness of breath does not get worse with his chest pain. The patient denies any recent weight gain or weight loss. The patient denies any sore throat except when he is coughing frequently. In the emergency department, the patient had a chest x- ray, which was unremarkable. The patient was found to have severe rhonchi with slight expiratory wheezing, which improved somewhat with nebulizer treatment. The patient was given steroids and azithromycin and we were asked to evaluate the patient for admission to the hospital. PAST MEDICAL HISTORY: Hypertension, coronary artery disease, diabetes mellitus type 2, COPD, hypothyroidism. PAST SURGICAL HISTORY: Catheterization, cholecystectomy, PCI with 5 stents placed, retinal surgery. MEDICATIONS: 1. Metoprolol succinate 50 mg p.o. daily. 2. Amlodipine 10 mg p.o. daily. 3. Aspirin 81 mg p.o. daily. 4. Isosorbide mononitrate 20 mg p.o. daily. 5. Hydralazine 10 mg p.o. t.i.d. 6. Torsemide 20 mg p.o. daily. 7. Metformin 500 mg p.o. b.i.d. 8. Flomax 0.4 mg p.o. daily. 9. Irbesartan 300 mg p.o. daily. 10. Spironolactone 25 mg p.o. daily. 11. Rosuvastatin 10 mg p.o. daily. 12. Rivaroxaban 20 mg p.o. daily. 13. Pantoprazole 40 mg p.o. daily. 14. Doxepin 25 mg p.o. daily. 15. Oxybutynin 5 mg p.o. b.i.d. 16. Synthroid 200 mcg p.o. daily. ALLERGIES: AMLODIPINE, ATORVASTATIN, EZETIMIBE, DIPYRIDAMOLE, EPLERENONE, GEMFIBROZIL, CRESTOR, SIMVASTATIN. FAMILY HISTORY: The patient's mother of an [place]. The patient's father's history is unknown. SOCIAL HISTORY: The patient smoked for 25 years 2 to 3 packs a day. The patient drinks occasional alcohol. Denies illicit drug use. 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 The patient was born in [facility]. The patient is and has 3 children. REVIEW OF SYSTEMS: A 14-point review of systems was reviewed and is negative except as above in the HPI. Of note, the patient has lost 40 pounds in the last 2 years unintentionally, but he attributes this to his hypothyroidism being treated. PHYSICAL EXAMINATION GENERAL: The patient is an 83-year-old male, who appears stated age and is sitting comfortably in bed, in no acute distress. VITAL SIGNS: At the time of evaluation, temperature 98.3, pulse rate 89, respiratory rate 21, oxygen saturation 92% on room air, blood pressure 144/62. HEENT: Head: Normocephalic, atraumatic. Sclerae anicteric. No conjunctival injection. Nasal mucosa moist. Oral mucosa moist. No pharyngeal erythema, discharge, or exudate. NECK: Supple, nontender. No lymphadenopathy. No carotid bruits auscultated. No JVD. RESPIRATORY: Rhonchi heard in bilateral lower lobes, expiratory wheezing heard as well. No adventitious lung sounds in the upper lobes. Rhonchi only in the middle lobes. CARDIAC: Regular rate and rhythm. No clicks, murmurs, gallops, or rubs. Pulses are 2+ in the bilateral dorsalis pedis, posterior tibialis, and radial areas. 1+ bilateral lower extremity edema noted. ABDOMEN: Soft, nontender, nondistended. Bowel sounds present and normoactive in all 4 quadrants. No hepatosplenomegaly. No abdominal bruits auscultated. No hepatojugular reflux. GENITOURINARY: No suprapubic or CVA tenderness. NEURO: Cranial nerves II through XII intact. No focal deficits. Alert and oriented x3. PSYCHIATRIC: Pleasant and cooperative. SKIN: Clean, dry, and intact. No rash. DIAGNOSTIC STUDIES/LAB DATA: White blood cell count 11.9, hemoglobin 11.7, platelet count 200. INR 1.12. Sodium 138, potassium 4.0, carbon dioxide 25, anion gap 6, BUN 28, creatinine 1.07, glucose 181, calcium 10.1. Bilirubin 0.3 , AST 17, ALT 22, alkaline phosphatase 90. Troponin I 0.01. BNP 299. Protein 6.9, albumin 3.7, globulin 3.2. TSH 0.03, thyroxine 11.4, total T3 of 89. Studies: Chest x-ray read as no acute cardiopulmonary disease. Electrocardiogram shows normal sinus rhythm; possible ST depression in the lateral leads, new from previous exam; intraventricular conduction delay. ASSESSMENT AND PLAN: Impression: Mr. Burgos is an 83-year-old male with past medical history significant for coronary artery disease, status post 5 stents; hypertension; chronic obstructive pulmonary disease, who presents to the emergency department with shortness of breath and rhonchi x12 hours. The patient has symptoms consistent with a chronic obstructive pulmonary disease exacerbation and will be admitted to the hospital for acute treatment. 1. Acute chronic obstructive pulmonary disease exacerbation. The patient is no longer on any meds for his chronic obstructive pulmonary disease. The patient has wheezing, rhonchi and shortness of breath consistent with chronic obstructive pulmonary disease exacerbation. The patient has an upper respiratory infection with runny nose, likely exacerbating his chronic obstructive pulmonary disease. The patient will be started on steroids, scheduled inhalers and azithromycin for its anti-inflammatory effects. The patient has no clinical signs of pneumonia. The patient should be started on long-acting inhalers, starting with a LAMA and LABA upon discharge. 2. Coronary artery disease, elevated BNP. The patient may have a component of congestive heart failure exacerbation. The patient does not remember having recent echocardiogram. This will be updated at this time to assess for decreased ejection fraction. The patient is already on torsemide. This will be kept at his home dose at this time. The patient should keep his legs elevated. The patient will have strict I's and O's and daily weights to assess for weight gain while in the hospital. Therapeutic trial of increased diuresis should be considered if the patient does not improve on the above treatment. Judicious fluids will be used. 3. Diabetes mellitus type 2. We will add on a hemoglobin A1c. The patient will be continued on his metformin while in the hospital. It is unclear whether he has been taking this at home as his pharmacy states he has not picked it up in 3 months. 4. Hypertension. Continue the patient's hydralazine, irbesartan, isosorbide mononitrate, metoprolol and spironolactone as well as torsemide. 5. Hypothyroidism. The patient's TSH is low. We will decrease the dose of the patient's Synthroid. 6. Anticoagulation. The patient is on rivaroxaban at this time. It is unclear whether this is for his coronary artery disease or for paroxysmal atrial fibrillation. The patient is not currently in atrial fibrillation. This will be continued while the patient is inpatient. This should be followed up with the patient's primary care provider. 7. DVT prophylaxis: Xarelto. 8. FEN: The patient will have a heart-healthy diet, caffeine okay. No fluids are indicated. 9. Disposition: The patient is admitted inpatient. TIME SPENT: Approximately 60 minutes was spent on the admission of this patient , 30 of which was spent [id number] with the patient obtaining history and physical and discussing treatment plan. This plan was discussed with my attending, Dr. Sushila Mendez, and she is in agreement. SUSI MARES [id number]/[facility] #: [id number] KD
[2018-11-29 20:15] LABS: Troponin I 0.04 ng/mL (<0.04)
[2018-11-29] MEDS: metFORMIN* 500 MG TAB PO SCH (20:28)
[2018-11-29] MEDS: Oxybutynin TAB* 5 MG PO SCH (20:28)
[2018-11-29] MEDS: guaiFENesin ER TAB 600 MG PO SCH (20:28)
[2018-11-29] MEDS: hydrALAZINE TAB* 100 MG ** ONE HUNDRED PO SCH (20:29)
[2018-11-29 22:51] LABS: Troponin I 0.04 ng/mL (<0.04)
[2018-11-30] MEDS ORDERED: Levothyroxine TAB* 150 MCG TAB PO SCH (06:00)
[2018-11-30 06:32] LABS: ABS Lymphocytes 0.5 10^3/ul (1.0-4.8); ABS Monocytes 0.6 10^3/ul (0-0.8); ABS Neutrophils 12.2 10^3/ul (1.5-7.7); Hematocrit 30 % (42-52); Hemoglobin 10.4 g/dL (14.0-18.0); Lymphocyte % 3.9 %; Mean Corpuscular HGB Conc 34 g/dL (31-36); Mean Corpuscular Hemoglobin 31 pg (27-31); Mean Corpuscular Volume 91 fL (80-94); Mean Platelet Volume 9.1 fL (7.4-10.4); Platelet Count 199 10^3/uL (150-450); Red Blood Count 3.35 10^6 /uL (4.18-5.48); Red Cell Distribution Width 13 % (10-15); White Blood Count 13.3 10^3/uL (3.5-10.8)
[2018-11-30 06:49] LABS: Calcium 9.9 mg/dL (8.6-10.3); EGFR African American 77.5 (>60); EGFR Non-African American 64.1 (>60); Magnesium 2.2 mg/dL (1.9-2.7); Potassium 4.3 mmol/L (3.5-5.0)
[2018-11-30] MEDS ORDERED: Rivaroxaban TAB(*) 20 MG TAB PO SCH (09:00)
[2018-11-30] MEDS ORDERED: Aspirin EC TAB* 81 MG TAB.EC PO SCH (09:00)
[2018-11-30] MEDS ORDERED: Tiotropium CAP.INH* CAP.INH/18 MCG (USE ORDER SET !) INH SCH (09:00)
[2018-11-30] MEDS ORDERED: Torsemide TAB 10 MG PO SCH (09:00)
[2018-11-30] MEDS ORDERED: Tamsulosin CAP* 0.4 MG PO SCH (09:00)
[2018-11-30] MEDS ORDERED: amLODIPine TAB* 5 MG PO SCH (09:00)
[2018-11-30] MEDS ORDERED: Spironolactone TAB* 25 MG PO SCH (09:00)
[2018-11-30] MEDS ORDERED: Losartan TAB* 25 MG PO SCH (09:00)
[2018-11-30] MEDS ORDERED: predniSONE TAB* 20 MG PO SCH (09:00)
[2018-11-30] MEDS ORDERED: Metoprolol Succinate XL TAB* 50 MG PO SCH (09:00)
[2018-11-30] MEDS ORDERED: Pantoprazole TAB * 40 MG TAB PO SCH (09:00)
[2018-11-30] MEDS ORDERED: CMC:Doxepin (NF) 25 MG CAP PO SCH (09:00)
[2018-11-30] MEDS: metFORMIN* 500 MG TAB PO SCH (09:22)
[2018-11-30] MEDS: hydrALAZINE TAB* 100 MG ** ONE HUNDRED PO SCH ×2 (09:23→14:43)
[2018-11-30] MEDS: guaiFENesin ER TAB 600 MG PO SCH (09:23)
[2018-11-30] MEDS: Oxybutynin TAB* 5 MG PO SCH (09:23)
--- NOTE | 2018-11-30 09:27 | ECHO ---
*[facility]* [place] [address] Fax #: [phone] Transthoracic Echocardiogram Patient: Rodrick Burgos : 1935 Study Date: 11/30/2018 Age: 83 Gender: M HR: 68 bpm Height: 68 in /172.7 cm BSA: 1.9 m^2 Weight: 164.7 lb /74.8 kg BMI: 25.1 kg/m^2 *Psychiatric Social Worker: * Kathya Mosqueda RD *Referring Physician: * Mal Hamilton *Reading Physician: * Brady Gibson MD Indications: SOB. History: COPD,former smoker. Coronary artery disease. Risk factors: Hypertension. Diabetes mellitus. Conclusions Summary: - Left ventricle: Systolic function is normal. The estimated ejection fraction is 50-55%. Wall motion is normal; there are no regional wall motion abnormalities. - Mitral valve: There is trace to mild regurgitation. - Aortic valve: Thickening, consistent with sclerosis. There is trace regurgitation. - Tricuspid valve: There is no significant regurgitation. - Pericardium, extracardiac: No evidence of pleural fluid accumulation. - Compared to transesophageal echocardiogram of 02/23/2007, there is little change. Study data: Transthoracic echocardiogram. Procedure: Transthoracic echocardiography was performed. Image quality was good. Complete 2D, spectral Doppler, and color flow Doppler. Patient status: Inpatient. Patient room number: 442-1. Rhythm: Normal sinus rhythm with PAC's. Findings Left ventricle: The cavity size is normal. Wall thickness is at the upper limits of normal. Systolic function is normal. The estimated ejection fraction is 50-55%. Wall motion is normal; there are no regional wall motion abnormalities. Left ventricular diastolic function parameters are normal for the patient's age. Right ventricle: Well visualized. The cavity size is normal. Wall thickness is normal. Systolic function is normal. Ventricular septum: Well visualized. Left atrium: Well visualized. The atrium is normal in size. Right atrium: Well visualized. The atrium is normal in size. Atrial septum: Well visualized. Mitral valve: Well visualized. The leaflets are mildly thickened. No echocardiographic evidence for prolapse. There is no evidence of stenosis. There is trace to mild regurgitation. Aortic valve: Well visualized. The valve is trileaflet. Thickening, consistent with sclerosis. There is no evidence of stenosis. There is trace regurgitation. Tricuspid valve: Well visualized. The leaflets are normal thickness. There is no evidence of stenosis. There is no significant regurgitation. Pulmonic valve: Well visualized. The leaflets are normal thickness. There is no evidence of stenosis. There is no significant regurgitation. Aorta: The aorta is not visualized. Pericardium: There is no pericardial effusion. No evidence of pleural fluid accumulation. Pulmonary arteries: Not well visualized. Systemic veins: Not well visualized. Pulmonary veins: Well visualized. Measurements Left ventricle Value Ref Right atrium Value Ref ECTOR, LAX 4.9 cm 4.2 - SI dim, ES 4.7 cm 3.4 - 5.3 5.8 ML dim, ES, A4C 3.8 cm 2.6 - 4.4 ESD, LAX 3.8 cm 2.5 - SI dim, ES, A4C 4.7 cm 3.4 - 5.3 4.0 SI dim/bsa, ES, A4C 2.5 cm/m^2 1.8 - 3.0 FS, LAX (L) 22 % 25 - 43 PW, ED, LAX 1.0 cm 0.6 - Aortic valve Value Ref 1.0 Peak v, S 1.89 m/sec --------- FS (L) 22 % 25 - 43 VTI, S 47.8 cm --------- PW, ED 1.0 cm 0.6 - Mean grad, S 7.0 mm Hg --------- 1.0 Peak grad, S 14.3 mm Hg --------- PW/ID, ED 0.2 -------- LVOT/AV, VTI ratio 0.65 --------- E', lat veronica, TDI (L) 7.4 cm/sec >=10.0 E/e', lat veronica, 16 -------- Mitral valve Value Ref TDI Peak E 1.2 m/sec --------- Peak A 0.98 m/sec --------- LVOT Value Ref Decel time 241 ms --------- Peak daria, S 1.19 m/sec -------- Peak grad, D 5.8 mm Hg --------- VTI, S 31.3 cm -------- Peak E/A ratio 1.23 --------- Peak grad, S 6 mm Hg -------- Mean grad, S 3 mm Hg -------- Pulmonic valve Value Ref Peak v, S 1.38 m/sec --------- Ventricular septum Value Ref Peak grad, S 7.7 mm Hg --------- IVS, ED (H) 1.2 cm 0.6 - 1.0 Aortic root Value Ref Root diam 1.8 cm <4.1 Right ventricle Value Ref ECTOR, LAX 3.5 cm -------- Ascending aorta Value Ref ECTOR major ax, A4C (L) 3.8 cm 5.9 - AAo AP diam, S 2.7 cm --------- 8.3 AAo AP diam/bsa, S 1.4 cm/m^2 --------- Left atrium Value Ref LA ID 3.7 cm -------- SI dim ES, LAX 3.7 cm -------- ML dim, A4C 3.4 cm -------- SI dim, A4C 4.9 cm -------- Vol, ES, 2-p 53 ml -------- Vol/bsa, ES, 2-p 28 ml/m^2 16 - 34 Legend: (L) and (H) chelsey values outside specified reference range. Prepared and electronically signed by Brady Gibson MD 11/30/2018 09:26
--- NOTE | 2018-11-30 10:58 | PN ---
<Nannette Rich - Last Filed: 11/30/18 13:47> Subjective Date of Service: 11/30/18 Interval History: Reviewed history, patient had shortness of breath for 1 year, and chronic cough for 3-4 months. He had lung function test done which revealed PEV/PVC ratio 69%, which was borderline picture for COPD. He was not on inhaler at home due to financial problems. He used to get samples from doctors but he had difficulty getting albuterol. Patient still had wheezing and cough this morning, but he felt much better after steroid therapy. He is keen to go home today. Objective Active Medications: Acetaminophen (Tylenol Tab*) 650 mg PO Q6H PRN PRN Reason: FEVER/PAIN Last Admin: 11/29/18 21:33 Dose: 650 mg Albuterol (Ventolin 2.5 Mg/3 Ml Neb.Zoila*) 2.5 mg INH Q2H PRN PRN Reason: SOB/WHEEZING Amlodipine Besylate (Norvasc Tab*) 10 mg PO DAILY [facility] Last Admin: 11/30/18 09:22 Dose: 10 mg Aspirin (Aspirin Ec Tab*) 81 mg PO DAILY [facility] Last Admin: 11/30/18 09:23 Dose: 81 mg Benzonatate (Tessalon Cap*) 100 mg PO BID PRN PRN Reason: COUGH Doxepin HCl (Doxepin (Nf)) 25 mg PO DAILY [facility]; Protocol Last Admin: 11/30/18 09:24 Dose: 25 mg Guaifenesin (Mucinex*) 1,200 mg PO BID [facility] Last Admin: 11/30/18 09:23 Dose: 1,200 mg Hydralazine HCl (Apresoline Tab*) 100 mg PO TID [facility] Last Admin: 11/30/18 09:23 Dose: 100 mg Azithromycin 250 mg/ Sodium (Chloride) 250 mls @ 250 mls/hr IVPB Q24H [facility] Stop: 12/03/18 14:59 Isosorbide Mononitrate (Isosorbide Mononitrate (Nf)) 20 mg PO DAILY@1600 [facility]; Protocol Last Admin: 11/29/18 17:14 Dose: 20 mg Levothyroxine Sodium (Synthroid Tab*) 150 mcg PO DAILY@0600 [facility] Last Admin: 11/30/18 05:09 Dose: 150 mcg Losartan Potassium (Cozaar Tab*) 100 mg PO DAILY [facility] Last Admin: 11/30/18 09:22 Dose: 100 mg Metformin HCl (Glucophage*) 500 mg PO BID [facility] Last Admin: 11/30/18 09:22 Dose: 500 mg Metoprolol Succinate (Toprol Xl Tab*) 50 mg PO DAILY [facility] Last Admin: 11/30/18 09:22 Dose: 50 mg Ondansetron HCl (Zofran Inj*) 4 mg IV Q6H PRN PRN Reason: NAUSEA Oxybutynin Chloride (Ditropan Tab*) 5 mg PO BID [facility] Last Admin: 11/30/18 09:23 Dose: 5 mg Pantoprazole Sodium (Protonix Tab*) 40 mg PO DAILY [facility] Last Admin: 11/30/18 09:22 Dose: 40 mg Prednisone (Deltasone Tab*) 60 mg PO DAILY [facility] Last Admin: 11/30/18 09:22 Dose: 60 mg Rivaroxaban (Xarelto(*)) 20 mg PO DAILY [facility] Last Admin: 11/30/18 09:22 Dose: 20 mg Rosuvastatin Calcium (Crestor (Nf)) 10 mg PO 1700 [facility]; Protocol Last Admin: 11/29/18 17:15 Dose: 10 mg Spironolactone (Aldactone Tab*) 25 mg PO DAILY [facility] Last Admin: 11/30/18 09:24 Dose: 25 mg Tamsulosin HCl (Flomax Cap*) 0.4 mg PO DAILY [facility] Last Admin: 11/30/18 09:23 Dose: 0.4 mg Torsemide (Torsemide) 10 mg PO DAILY [facility] Last Admin: 11/30/18 09:23 Dose: 10 mg Vital Signs - 8 hr 11/30/18 11/30/18 11/30/18 03:20 07:22 09:59 Temperature 97.6 F 98.2 F Pulse Rate 63 59 Respiratory 16 20 20 Rate Blood Pressure 127/37 144/39 (mmHg) O2 Sat by Pulse 97 98 Oximetry Oxygen Devices in Use Now: None Exam: Patient is alert, oriented, speak in full sentence, but cough fits noted Heart: normal S1 S2, no murmur Lung: bibasal creps, mild rhonchi noted Abdomen: soft, non tender LL: no swelling, no redness Result Diagrams: 11/30/18 05:51 11/30/18 05:51 Assess/Plan/Problems-Billing Assessment: Mr Burgos is a 83 years old gentleman with background of CAD s/p 5 stents, COPD , HTN, DM, hypothyroidism. He presented as acute episode of SOB and cough this time on top of his chronic SOB and cough, his WBC is elevated, although his CXR doesn't reveal any active infective lesions. Considering his irregular use of nebulizer due to financial reasons, this presentation is most likely a COPD exacerbation episode. - Patient Problems (1) COPD exacerbation Current Visit: No Status: Acute Code(s): J44.1 - CHRONIC OBSTRUCTIVE PULMONARY DISEASE W (ACUTE) EXACERBATION SNOMED Code(s): 436173619 Comment: Mid to moderate event. Start steroid, put on tapering schedule Prednisone 60mg x 3 days, 50mg x 3 days, 40mg x 3 days, 30mg x 3 day, 20mg x3days, and stop Azithromcin Day 2/5 on 11/30 Start nebulizer COPD exacerbation treatment (2) CAD (coronary artery disease) Current Visit: No Status: Acute Code(s): I25.10 - ATHSCL HEART DISEASE OF [place] CORONARY ARTERY W/O ANG PCTRS SNOMED Code(s): 34038200 Comment: No evidence of ACS this time Patient is on aspirin, metoprolol, statin for his CAD, he has no angina this adm (3) Diabetes Current Visit: No Status: Acute Code(s): E11.9 - TYPE 2 DIABETES MELLITUS WITHOUT COMPLICATIONS SNOMED Code(s): 29647472 Comment: He is on metformin, and HbA1c 7.8 this adm (4) Hypertension Current Visit: No Status: Acute Code(s): I10 - ESSENTIAL (PRIMARY) HYPERTENSION SNOMED Code(s): 75339820 Comment: BP well controlled this adm, on amlodipine, hydralazine, metoprolol , spirolactone, torsemide, lorsartan (5) Hypothyroidism Current Visit: No Status: Acute Code(s): E03.9 - HYPOTHYROIDISM, UNSPECIFIED SNOMED Code(s): 10018051 Comment: TSH 0.03, recommend lowing dose to 100mcg daily, primary care followup after discharge (6) DVT prophylaxis Current Visit: No Status: Acute Code(s): BCE7313 - SNOMED Code(s): 951824928 Comment: no DVT prophylaxis as pt is able to ambulate freely, and only1 day stay (7) Full code status Current Visit: No Status: Acute Code(s): Z78.9 - OTHER SPECIFIED HEALTH STATUS SNOMED Code(s): 348264050 (8) Anticoagulation therapy continued upon discharge Current Visit: Yes Status: Acute Code(s): HDJ5313 - SNOMED Code(s): 206307558 Comment: on rivaroxaban for unclear reason, continue it for primary care (9) Insomnia Current Visit: Yes Status: Acute Code(s): G47.00 - INSOMNIA, UNSPECIFIED SNOMED Code(s): 532946205 Comment: on home doxepin Status and Disposition: For discharge home today Attestation Documenting Resident: Nannette Rich Supervising Physician: Dr. Dupont Attestation: This service has been performed in part by a resident under the direction of a teaching physician.I, Dr. Dupont, performed the service, or was physically present during the critical, or aviles portions of the service, furnished by the resident. I participated in the management of the patient. <Vera Dupont - Last Filed: 11/30/18 15:00> Subjective Interval History: HD # 3 83 M PMH CAD s/p PCI x 5, COPD (FEV1/FVC 69 in several years ago), who presents with acute exacerbation of chronic cough, rhonchi and wheeze on exam. CXR unremarkable, Echo unremarkable, CTA neg for PE Cough improved with steroids, stable for d/c Objective Active Medications: Acetaminophen (Tylenol Tab*) 650 mg PO Q6H PRN PRN Reason: FEVER/PAIN Last Admin: 11/29/18 21:33 Dose: 650 mg Albuterol (Ventolin 2.5 Mg/3 Ml Neb.Zoila*) 2.5 mg INH Q2H PRN PRN Reason: SOB/WHEEZING Albuterol (Ventolin Hfa Inhaler*) 1 puff INH Q4H PRN PRN Reason: SOB/WHEEZING Amlodipine Besylate (Norvasc Tab*) 10 mg PO DAILY [facility] Last Admin: 11/30/18 09:22 Dose: 10 mg Aspirin (Aspirin Ec Tab*) 81 mg PO DAILY [facility] Last Admin: 11/30/18 09:23 Dose: 81 mg Benzonatate (Tessalon Cap*) 100 mg PO BID PRN PRN Reason: COUGH Doxepin HCl (Doxepin (Nf)) 25 mg PO DAILY [facility]; Protocol Last Admin: 11/30/18 09:24 Dose: 25 mg Guaifenesin (Mucinex*) 1,200 mg PO BID [facility] Last Admin: 11/30/18 09:23 Dose: 1,200 mg Hydralazine HCl (Apresoline Tab*) 100 mg PO TID [facility] Last Admin: 11/30/18 14:43 Dose: 100 mg Azithromycin 250 mg/ Sodium (Chloride) 250 mls @ 250 mls/hr IVPB Q24H [facility] Stop: 12/03/18 14:59 Isosorbide Mononitrate (Isosorbide Mononitrate (Nf)) 20 mg PO DAILY@1600 [facility]; Protocol Last Admin: 11/29/18 17:14 Dose: 20 mg Levothyroxine Sodium (Synthroid Tab*) 150 mcg PO DAILY@0600 [facility] Last Admin: 11/30/18 05:09 Dose: 150 mcg Losartan Potassium (Cozaar Tab*) 100 mg PO DAILY [facility] Last Admin: 11/30/18 09:22 Dose: 100 mg Metformin HCl (Glucophage*) 500 mg PO BID [facility] Last Admin: 11/30/18 09:22 Dose: 500 mg Metoprolol Succinate (Toprol Xl Tab*) 50 mg PO DAILY [facility] Last Admin: 11/30/18 09:22 Dose: 50 mg Ondansetron HCl (Zofran Inj*) 4 mg IV Q6H PRN PRN Reason: NAUSEA Oxybutynin Chloride (Ditropan Tab*) 5 mg PO BID [facility] Last Admin: 11/30/18 09:23 Dose: 5 mg Pantoprazole Sodium (Protonix Tab*) 40 mg PO DAILY [facility] Last Admin: 11/30/18 09:22 Dose: 40 mg Prednisone (Deltasone Tab*) 60 mg PO DAILY [facility] Last Admin: 11/30/18 09:22 Dose: 60 mg Rivaroxaban (Xarelto(*)) 20 mg PO DAILY [facility] Last Admin: 11/30/18 09:22 Dose: 20 mg Rosuvastatin Calcium (Crestor (Nf)) 10 mg PO 1700 [facility]; Protocol Last Admin: 11/29/18 17:15 Dose: 10 mg Fluticasone/Salmeterol (Advair Diskus 500-50*) 1 puff INH BID [facility] Spironolactone (Aldactone Tab*) 25 mg PO DAILY [facility] Last Admin: 11/30/18 09:24 Dose: 25 mg Tamsulosin HCl (Flomax Cap*) 0.4 mg PO DAILY [facility] Last Admin: 11/30/18 09:23 Dose: 0.4 mg Torsemide (Torsemide) 10 mg PO DAILY [facility] Last Admin: 11/30/18 09:23 Dose: 10 mg Vital Signs - 8 hr 11/30/18 11/30/18 11/30/18 07:22 09:59 12:08 Temperature 98.2 F 98.1 F Pulse Rate 59 60 Respiratory 20 20 20 Rate Blood Pressure 144/39 126/38 (mmHg) O2 Sat by Pulse 98 Oximetry Exam: Agree with resident documentation Result Diagrams: 11/30/18 05:51 11/30/18 05:51 Assess/Plan/Problems-Billing Assessment: Agree with above presentation, DDX includes CAP, mild volume overload - Patient Problems (1) COPD exacerbation Current Visit: No Status: Acute Code(s): J44.1 - CHRONIC OBSTRUCTIVE PULMONARY DISEASE W (ACUTE) EXACERBATION SNOMED Code(s): 940457750 Comment: Mid to moderate event. Prednisone 60mg x 3 days, 50mg x 3 days, 40mg x 3 days, 30mg x 3 day, 20mg x3days, and stop Azithromcin Day 2/5 on 11/30 (2) CAD (coronary artery disease) Current Visit: No Status: Acute Code(s): I25.10 - ATHSCL HEART DISEASE OF [place] CORONARY ARTERY W/O ANG PCTRS SNOMED Code(s): 56027181 Comment: No evidence of ACS this time Patient is on aspirin, metoprolol, statin for his CAD, he has no angina this adm (3) Diabetes Current Visit: No Status: Acute Code(s): E11.9 - TYPE 2 DIABETES MELLITUS WITHOUT COMPLICATIONS SNOMED Code(s): 05385217 Comment: He is on metformin, and HbA1c 7.8 this adm (4) Hypertension Current Visit: No Status: Acute Code(s): I10 - ESSENTIAL (PRIMARY) HYPERTENSION SNOMED Code(s): 29502007 Comment: BP well controlled this adm, on amlodipine, hydralazine, metoprolol , spirolactone, torsemide, lorsartan (5) Hypothyroidism Current Visit: No Status: Acute Code(s): E03.9 - HYPOTHYROIDISM, UNSPECIFIED SNOMED Code(s): 80194129 Comment: TSH 0.03, recommend lowing dose to 100mcg daily, primary care followup after discharge (6) Insomnia Current Visit: Yes Status: Acute Code(s): G47.00 - INSOMNIA, UNSPECIFIED SNOMED Code(s): 444124678 Comment: on home doxepin (7) Anticoagulation therapy continued upon discharge Current Visit: Yes Status: Acute Code(s): CSS9189 - SNOMED Code(s): 135517734 Comment: on rivaroxaban for unclear reason, continue per primary care, assume PAF (8) DVT prophylaxis Current Visit: No Status: Acute Code(s): KIA0215 - SNOMED Code(s): 232263562 Comment: no DVT prophylaxis as pt is able to ambulate freely, and only1 day stay (9) Full code status Current Visit: No Status: Acute Code(s): Z78.9 - OTHER SPECIFIED HEALTH STATUS SNOMED Code(s): 720197580 Status and Disposition: Stable for d/c to home Attending: Vera Chan I have reviewed the residents findings and agree
[2018-11-30 12:10] VITALS: BP 126/38
[2018-11-30] MEDS ORDERED: Albuterol HFA INHALER* 8 gm MDI INH PRN (13:26)
[2018-11-30] MEDS ORDERED: Azithromycin IV(*) 250 MG in NS 0.9% 250 ML* 250 ML IVPB SCH (14:00)
[2018-11-30] MEDS: FLUTICASONE SALMETEROL INH SCH ×2 (15:59→20:20)
[2018-11-30] MEDS: CMC:Rosuvastatin (NF) 10 MG TAB PO SCH (16:04)
[2018-11-30] MEDS: CMC:Isosorbide Mononitrate (NF) 20 MG TAB PO SCH (16:06)
--- NOTE | 2018-11-30 22:36 | DS ---
DISCHARGE SUMMARY: DATE OF ADMISSION: 11/29/18 DATE OF DISCHARGE: 11/30/18 PRIMARY CARE PROVIDER: Dr. Servando Clemons through [facility]. DISPOSITION AT THE TIME OF DISCHARGE: Stable, discharged to home. PRIMARY DIAGNOSIS: Chronic obstructive pulmonary disease exacerbation. SECONDARY DIAGNOSES: 1. Coronary artery disease, status post PCI x5. 2. Chronic obstructive pulmonary disease, borderline with FEV1/FVC 69 in the past. 3. Hypertension. 4. Gtg-bdyuisw-ccuurlkry diabetes. 5. Hypothyroidism. 6. Insomnia. 7. Benign prostatic hypertrophy. 8. Gastroesophageal reflux disease. MEDICATIONS AT DISCHARGE: 1. Azithromycin 500 mg p.o. daily x3 days status post discharge. 2. Guaifenesin 100 mg p.o. t.i.d. p.r.n. for 7 days status post discharge. 3. Levothyroxine 100 mcg p.o. daily. 4. Prednisone 60 mg p.o. daily x3 days status post discharge, followed by prednisone 50 mg p.o. daily x3 days, followed by prednisone 40 mg p.o. daily x3 days, followed by prednisone 30 mg p.o. daily x3 days, followed by prednisone 20 mg p.o. daily x3 days, then stop. 5. Albuterol (Ventolin) inhaler 1 puff inhaled q.4 hours. 6. Aspirin 81 mg p.o. daily. 7. Doxepin 25 mg p.o. daily. 8. Fluticasone/salmeterol 500/50 one puff inhaled b.i.d. 9. Hydralazine 100 mg p.o. t.i.d. 10. Irbesartan 300 mg p.o. daily. 11. Isosorbide mononitrate 20 mg p.o. daily. 12. Metformin 500 mg p.o. daily. 13. Metoprolol succinate 50 mg p.o. daily. 14. Oxybutynin 5 mg p.o. b.i.d. 15. Pantoprazole 40 mg p.o. daily. 16. Rivaroxaban 20 mg p.o. daily. 17. Rosuvastatin 10 mg p.o. q.h.s. 18. Spironolactone 25 mg p.o. daily. 19. Tamsulosin 0.4 mg p.o. daily. 20. Torsemide 10 mg p.o. daily. Medication changes this hospital admission include the addition of azithromycin , prednisone, Ventolin, Advair, guaifenesin for acute COPD exacerbation as well as the dose lowering of levothyroxine 100 mcg p.o. daily from 150 mcg p.o. daily. HISTORY OF PRESENT ILLNESS AND HOSPITAL COURSE: This is an 83-year-old male with above past medical history, who presented to the emergency room with history of chronic cough, although worsening subacute cough and shortness of breath with audible rhonchi. He says he has been feeling poorly over the course of 3 to 4 weeks with wheezing, but no other fevers, chills, or upper respiratory symptoms aside from a runny nose for several days. He does say that he has productive sputum, thin white phlegm and has not changed in color otherwise. He has not had worsening of swelling in the legs, orthopnea, although he does have chronic mild swelling in the legs, which has improved with compressive stockings. He had significant rhonchi and wheezing, although vital signs were normal in the emergency room. A chest x-ray was done, which showed no radiographic evidence of acute cardiopulmonary disease. Transthoracic echocardiogram was done, which showed ejection fraction of 50% to 55%, no regional wall motion abnormalities, and no significant valvular disease. EKG showed sinus rhythm with no acute evidence of new ischemia. The patient was admitted under observation for his COPD like symptoms and diffuse rhonchi and cough, although he did not have new oxygen requirement. His hospital course by problem is as follows: 1. Shortness of breath. The patient was ruled out effectively for new ischemic event, worsening heart failure. He did have a CTA done in subsequent ER visits that did not show new PE. He has audible rhonchi and expiratory wheezing that improves with steroids as well as nebulizer treatment. He has been off inhaler therapy secondary to his inability to pay for them as an outpatient and his symptoms and signs are most consistent with COPD exacerbation , likely from viral nature with underlying bronchitis. The patient will be treated for a COPD exacerbation with steroids, bronchodilators including control and rescue agents. Because he has no new oxygen requirement and does not desaturate even on ambulation, he is stable for discharge with followup through primary care, although precautions to expectations were given. 2. CAD, status post prior PCI. The patient has extensive cardiac history. He has no evidence of new angina and echocardiogram with no decompensation in ejection fraction or signs concerning for acute ischemia. His home medications are continued. He is on rivaroxaban. This is unclear whether this is from history of paroxysmal atrial fibrillation or from another underlying indication , although this was continued. Also, he was given his home torsemide, although there is no clear component of volume overload. 3. Hypertension. His home medications were continued. 4. Psy-blgpdmm-mkwrflxft diabetes. His home metformin was continued. His A1c is 7.8, which is within goal for his age. 5. GERD. PPI was continued. 6. BPH. Home oxybutynin and tamsulosin were continued. 7. Insomnia. The patient has longstanding history of insomnia and takes doxepin, which was continued. 8. Hypothyroidism. TSH on admission was 0.03. Levothyroxine dose was changed to 100 from 150 mcg upon discharge. On the day of discharge, the patient is ambulating with normal vital signs, although he continues to have diffuse cough with white sputum and rhonchi, although he is responsive to inhalers as well as prednisone. His vital signs are stable. He is tolerating diet and voiding freely and is stable to be discharged with COPD exacerbation, likely of viral etiology. LABS AND STUDIES DONE DURING THIS HOSPITALIZATION: Echocardiogram, 11/29/18, preserved ejection fraction with no regional wall motion abnormalities. Chest x-ray with no active cardiopulmonary disease on 11/29/18. EKG with sinus rhythm with no acute ischemia on 11/29/18. Labs from 11/30/18 show mild leukocytosis at 13.3, hemoglobin 10.4, hematocrit 30, platelets 199. BMP unremarkable. Troponin is mildly elevated at 0.04, although plateaued. CONSULTANTS DURING THIS HOSPITALIZATION: Included none. ITEMS TO FOLLOW UP STATUS POST DISCHARGE: 1. COPD and evidence of chronic bronchitis, possibly exacerbated by recent viral URI. The patient needs supportive care. Will likely need optimization from a reactive airway disease component with bronchodilators. He is given Advair and Ventolin inhalers from the hospital on discharge as he is unable to afford them as an outpatient, consider samples through primary care. Furthermore, he is on prednisone taper following 60, 50, 40, 30, 20 mg doses x3 days status post discharge as per instructions and azithromycin for an additional 3 days to complete a 5-day course for presumed COPD flare and component of inflammation. 2. Levothyroxine dosing. His TSH is low on admission. This dose was changed to 100 from 150 and can be followed up with primary care. 3. Chronic cough. On discussion with the patient, he has had subacute chronic cough going on for "years." Most likely, this is secondary to possible cough- variant asthma or COPD. Consider postnasal drip or GERD. It sounds that it has acutely worsened in an acute fashion within the last 2 weeks, which his current presentation is consistent with COPD exacerbation. Again, on the day of discharge, the patient is ambulating, stable. He does have one episode of vertigo-like symptoms which passed and feels he is otherwise back to baseline. He is tolerating diet, voiding freely and vital signs are stable. Plan of care was discussed with the patient and his family, who agree for discharge to home and continue monitoring and close followup with primary care. TIME SPENT: Forty-five minutes was spent in the planning of this discharge with over half of that was spent directly at the bedside of the patient providing direct patient care. If there are any questions about the care of this patient during this hospitalization, please do not hesitate to reach out. [id number]/[facility] #: [id number] [place]
== END 2018-11-30 19:00 | disposition home or self-care (01) ==
LOC: ED 09:47 → INTOOBSV 13:05 → MEDTELE 13:05
PROVIDERS: ADMIT Hospitalist; ATTEND Internal Medicine
DX: J44.1 Chronic obstructive pulmonary disease with (acute) exacerbation (principal); I10 Essential (primary) hypertension; I25.10 Atherosclerotic heart disease of native coronary artery without angina pectoris; E03.9 Hypothyroidism, unspecified; E11.9 Type 2 diabetes mellitus without complications; N40.0 Benign prostatic hyperplasia without lower urinary tract symptoms; K21.9 Gastro-esophageal reflux disease without esophagitis; Z79.82 Long term (current) use of aspirin; Z79.899 Other long term (current) drug therapy; G47.00 Insomnia, unspecified; Z95.5 Presence of coronary angioplasty implant and graft; Z87.891 Personal history of nicotine dependence; Z79.01 Long term (current) use of anticoagulants; R94.31 Abnormal electrocardiogram [ECG] [EKG]
CPT/HCPCS: 36415; 71046; 80048; 80053; 83036; 83735; 83880; 84436; 84443; 84479; 84484; 85025; 85610; 93005; 93306; 96365; 96376; 99285; A9270-GY; G0378; J0456; J2930; J7512; J7611

== ENCOUNTER 2019-12-04 21:40 | Inpatient (IN) ==
[2019-12-04] MEDS ORDERED: NS 0.9% 1000 ml BAG 1,000 ML IV ONE (21:53)
[2019-12-04 23:16] LABS: Urine Appearance Cloudy; Urine Bilirubin Negative (Negative); Urine Blood 3+ (Negative); Urine Color Yellow; Urine Glucose Negative (Negative); Urine Ketones Negative (Negative); Urine Nitrite Positive (Negative); Urine Protein Negative (Negative); Urine Specific Gravity 1.009 (1.010-1.030); Urine Urobilinogen Negative (Negative)
[2019-12-04 23:28] LABS: Urine Bacteria 1+ (Absent); Urine Red Blood Cell 3+(>10/hpf) (Absent); Urine White Blood Cell 3+(>20/hpf) (Absent)
[2019-12-04 23:29] LABS: Albumin 3.6 g/dL (3.2-5.2); Albumin/Globulin Ratio 1.3 (1-3); BUN/Creatinine Ratio 30.5 (8-20); C Reactive Protein 82.82 mg/L (<8.01); Calcium 10.2 mg/dL (8.6-10.3); EGFR African American 52.5 (>60); EGFR Non-African American 43.4 (>60); Globulin 2.8 g/dL (2-4); Potassium 4.5 mmol/L (3.5-5.0); Total Bilirubin 0.4 mg/dL (0.2-1.0); Total Protein 6.4 g/dL (6.4-8.9)
[2019-12-04 23:44] LABS: ABS Lymphocytes 0.4 10^3/ul (1.0-4.8); ABS Monocytes 1.1 10^3/ul (0-0.8); ABS Neutrophils 19.5 10^3/ul (1.5-7.7); Hematocrit 28 % (42-52); Hemoglobin 9.5 g/dL (14.0-18.0); Lymphocyte % 2.1 %; Mean Corpuscular HGB Conc 34 g/dL (31-36); Mean Corpuscular Hemoglobin 30 pg (27-31); Mean Corpuscular Volume 91 fL (80-94); Mean Platelet Volume 9.5 fL (7.4-10.4); Platelet Count 213 10^3/uL (150-450); Red Blood Count 3.13 10^6 /uL (4.18-5.48); Red Cell Distribution Width 12 % (10-15); White Blood Count 21.1 10^3/uL (3.5-10.8)
[2019-12-05] MEDS ORDERED: cefTRIAXone 1 gm/50 mL NS BAG 1 GM/50 ML BAG IV ONE (00:08)
[2019-12-05] MEDS ORDERED: NS 0.9% 1000 ml BAG 1,000 ML IV ONE (00:09)
[2019-12-05] MEDS ORDERED: Albuterol 2.5mg/3 ml (0.083%) NEB.SOLN INH PRN (03:12)
[2019-12-05] MEDS ORDERED: Ondansetron 4 mg VIAL 2 MG/ML 2 ml VIAL IV PRN (03:12)
[2019-12-05] MEDS ORDERED: Dextrose 50% Syringe 50 ml 25 GM/50 ML SYRINGE IV PUSH PRN (03:30)
[2019-12-05 04:01] LABS: TSH Ultra Thyroid Stim Horm 0.06 mcIU/mL (0.34-5.60)
[2019-12-05 06:43] LABS: ABS Basophils 0.2 10^3/ul (0-0.2); ABS Lymphocytes 0.6 10^3/ul (1.0-4.8); ABS Monocytes 1.3 10^3/ul (0-0.8); ABS Neutrophils 17.7 10^3/ul (1.5-7.7); Hematocrit 27 % (42-52); Hemoglobin 9.5 g/dL (14.0-18.0); Mean Corpuscular HGB Conc 35 g/dL (31-36); Mean Corpuscular Hemoglobin 32 pg (27-31); Mean Corpuscular Volume 91 fL (80-94); Mean Platelet Volume 8.8 fL (7.4-10.4); Platelet Count 184 10^3/uL (150-450); Red Blood Count 3.02 10^6 /uL (4.18-5.48); Red Cell Distribution Width 13 % (10-15); White Blood Count 19.7 10^3/uL (3.5-10.8)
[2019-12-05 06:59] LABS: Anion Gap 2 mmol/L (2-11); BUN/Creatinine Ratio 27.6 (8-20); Blood Urea Nitrogen 35 mg/dL (6-24); CO2 Carbon Dioxide 22 mmol/L (22-32); Calcium 9.7 mg/dL (8.6-10.3); Chloride 111 mmol/L (101-111); EGFR African American 65.5 (>60); EGFR Non-African American 54.2 (>60); Glucose 190 mg/dL (70-100); Potassium 4.5 mmol/L (3.5-5.0); Sodium 135 mmol/L (135-145)
[2019-12-05 07:43] LABS: Free T4 1.86 ng/dL (0.61-1.12)
[2019-12-05 08:34] LABS: Total T3 37 ng/dL (87-178)
[2019-12-05] MEDS: Aspirin EC 81 mg TAB.EC (enteric coated) PO SCH (08:42)
[2019-12-05] MEDS ORDERED: Iodixanol (CONTRAST) 320 MG/ML 100 ML SDV IV SCH (13:26)
[2019-12-05] MEDS ORDERED: NS 0.9% 1000 ml BAG 1,000 ML IV SCH (13:45)
[2019-12-05 15:21] LABS: Ferritin 41.6 ng/mL (24-336)
[2019-12-05 15:24] LABS: Folate 7.49 ng/mL (>3.99)
[2019-12-05 15:25] LABS: Vitamin B12 282 pg/mL (180-914)
[2019-12-05 15:30] LABS: Iron < 20 ug/dL (50-212)
[2019-12-05] MEDS: CMCS:Rosuvastatin 20 mg TAB (NF) PO SCH (16:32)
[2019-12-05] MEDS: CMCS:Isosorbide Mononitr 20 mg (NF) PO SCH (16:32)
[2019-12-05] MEDS ORDERED: Analgesic BALM 114 GM TOPICAL PRN (18:46)
[2019-12-06] MEDS: cefTRIAXone 1 gm/50 mL NS BAG 1 GM/50 ML BAG IVPB SCH ×2 (00:15→22:31)
[2019-12-06 06:13] LABS: ABS Lymphocytes 0.9 10^3/ul (1.0-4.8); ABS Monocytes 1.1 10^3/ul (0-0.8); ABS Neutrophils 14.4 10^3/ul (1.5-7.7); Eosinophil % 0.2 %; Hematocrit 25 % (42-52); Hemoglobin 8.6 g/dL (14.0-18.0); Lymphocyte % 5.7 %; Mean Corpuscular HGB Conc 34 g/dL (31-36); Mean Corpuscular Hemoglobin 31 pg (27-31); Mean Corpuscular Volume 91 fL (80-94); Mean Platelet Volume 9.4 fL (7.4-10.4); Platelet Count 157 10^3/uL (150-450); Red Blood Count 2.75 10^6 /uL (4.18-5.48); Red Cell Distribution Width 13 % (10-15); White Blood Count 16.4 10^3/uL (3.5-10.8)
[2019-12-06 06:29] LABS: BUN/Creatinine Ratio 20.3 (8-20); Calcium 9.3 mg/dL (8.6-10.3); EGFR Non-African American 56.2 (>60); Potassium 4.3 mmol/L (3.5-5.0)
[2019-12-06] MEDS: Aspirin EC 81 mg TAB.EC (enteric coated) PO SCH (08:43)
[2019-12-06] MEDS ORDERED: Lactated Ringers 1000 ml BAG 1,000 ML IV SCH (09:00)
[2019-12-06] MEDS ORDERED: Iron Sucrose 200 MG in NS 0.9% 100 ml BAG 100 ML IVPB ONE (09:14)
[2019-12-06] MEDS: CMCS:Rosuvastatin 20 mg TAB (NF) PO SCH (16:15)
[2019-12-06] MEDS: CMCS:Isosorbide Mononitr 20 mg (NF) PO SCH (16:15)
[2019-12-07 02:24] LABS: Urine Appearance Cloudy; Urine Bilirubin Negative (Negative); Urine Blood 2+ (Negative); Urine Color Yellow; Urine Glucose Negative (Negative); Urine Ketones Negative (Negative); Urine Nitrite Negative (Negative); Urine Protein 1+(30 mg/dL) (Negative); Urine Specific Gravity 1.019 (1.010-1.030); Urine Urobilinogen Negative (Negative)
[2019-12-07 02:27] LABS: Urine Bacteria 1+ (Absent); Urine Red Blood Cell 1+(3-5/hpf) (Absent); Urine Squamous Epithelial Cell Present (Absent); Urine White Blood Cell 1+(6-10/hpf) (Absent)
[2019-12-07 06:51] LABS: ABS Eosinophils 0.1 10^3/ul (0-0.6); ABS Lymphocytes 0.8 10^3/ul (1.0-4.8); ABS Monocytes 0.8 10^3/ul (0-0.8); ABS Neutrophils 8.6 10^3/ul (1.5-7.7); Eosinophil % 0.7 %; Hematocrit 23 % (42-52); Hemoglobin 8.1 g/dL (14.0-18.0); Lymphocyte % 7.7 %; Mean Corpuscular HGB Conc 35 g/dL (31-36); Mean Corpuscular Hemoglobin 31 pg (27-31); Mean Corpuscular Volume 90 fL (80-94); Mean Platelet Volume 9.7 fL (7.4-10.4); Platelet Count 148 10^3/uL (150-450); Red Cell Distribution Width 13 % (10-15); White Blood Count 10.3 10^3/uL (3.5-10.8)
[2019-12-07] MEDS ORDERED: Iron Sucrose 200 MG in NS 0.9% 100 ml BAG 100 ML IVPB ONE (06:53)
[2019-12-07 07:07] LABS: BUN/Creatinine Ratio 26.9 (8-20); Calcium 8.8 mg/dL (8.6-10.3); EGFR African American 63.8 (>60); EGFR Non-African American 52.7 (>60); Magnesium 1.5 mg/dL (1.9-2.7); Potassium 4.3 mmol/L (3.5-5.0)
[2019-12-07] MEDS: Aspirin EC 81 mg TAB.EC (enteric coated) PO SCH (07:57)
[2019-12-07] MEDS ORDERED: Magnesium Sulfate IV 3 GM in NS 0.9% 100 ml BAG 100 ML IVPB ONE (09:04)
[2019-12-07 13:11] LABS: Hematocrit 26 % (42-52); Hemoglobin 9.1 g/dL (14.0-18.0)
[2019-12-07] MEDS: CMCS:Isosorbide Mononitr 20 mg (NF) PO SCH (17:39)
[2019-12-07] MEDS: CMCS:Rosuvastatin 20 mg TAB (NF) PO SCH (17:39)
[2019-12-07 18:23] VITALS: BP 137/55
== END 2019-12-07 20:00 | disposition home health service (06) | DRG 690 ==
LOC: ED 21:40 → MEDTELE 21:40
PROVIDERS: ADMIT Hospitalist; ATTEND Internal Medicine

== ENCOUNTER 2019-12-08 14:37 | Observation (INO) ==
[2019-12-08] MEDS ORDERED: Ondansetron 4 mg VIAL 2 MG/ML 2 ml VIAL IV PRN (15:31)
[2019-12-08] MEDS ORDERED: Analgesic BALM 114 GM TOPICAL PRN (15:35)
[2019-12-08 16:59] LABS: ABS Eosinophils 0.1 10^3/ul (0-0.6); ABS Lymphocytes 0.7 10^3/ul (1.0-4.8); ABS Monocytes 0.9 10^3/ul (0-0.8); ABS Neutrophils 5.8 10^3/ul (1.5-7.7); Eosinophil % 1.9 %; Hematocrit 26 % (42-52); Hemoglobin 8.9 g/dL (14.0-18.0); Lymphocyte % 9.2 %; Mean Corpuscular HGB Conc 34 g/dL (31-36); Mean Corpuscular Hemoglobin 31 pg (27-31); Mean Corpuscular Volume 91 fL (80-94); Mean Platelet Volume 9.5 fL (7.4-10.4); Platelet Count 193 10^3/uL (150-450); Red Blood Count 2.87 10^6 /uL (4.18-5.48); Red Cell Distribution Width 13 % (10-15); White Blood Count 7.6 10^3/uL (3.5-10.8)
[2019-12-08 17:12] LABS: BUN/Creatinine Ratio 20.4 (8-20); Calcium 9.6 mg/dL (8.6-10.3); EGFR African American 83.5 (>60); Potassium 4.5 mmol/L (3.5-5.0)
[2019-12-08] MEDS: CMCS: Rosuvastatin 20 mg TAB (NF) PO SCH (18:32)
[2019-12-08] MEDS: Iron Sucrose 200 MG in NS 0.9% 100 ml BAG 100 ML IVPB SCH (18:32)
[2019-12-08] MEDS: CMCS: Isosorbide Mononitr 20 mg (NF) PO SCH (18:33)
[2019-12-08] MEDS ORDERED: NS 0.9% 100 ml BAG 100 ML ONE (20:28)
[2019-12-09] MEDS ORDERED: Senna TAB 8.6 mg TAB PO PRN (03:37)
[2019-12-09] MEDS: Aspirin EC 81 mg TAB.EC (enteric coated) PO SCH (08:33)
[2019-12-09] MEDS: Iron Sucrose 200 MG in NS 0.9% 100 ml BAG 100 ML IVPB SCH (11:28)
[2019-12-09] MEDS: Polyethylene Glycol 3350 17 GM PACKET PO SCH (12:22)
[2019-12-09] MEDS: CMCS: Rosuvastatin 20 mg TAB (NF) PO SCH (16:03)
[2019-12-09] MEDS: CMCS: Isosorbide Mononitr 20 mg (NF) PO SCH (16:03)
[2019-12-10] MEDS: Aspirin EC 81 mg TAB.EC (enteric coated) PO SCH (10:16)
[2019-12-10] MEDS: Polyethylene Glycol 3350 17 GM PACKET PO SCH (10:16)
[2019-12-10 11:25] VITALS: BP 154/47
== END 2019-12-10 12:00 ==
LOC: MED 14:37 → ED 14:37 → MED 17:15
PROVIDERS: ADMIT Internal Medicine; ATTEND Internal Medicine

== ENCOUNTER 2023-01-31 12:54 | Inpatient (IN) ==
[2023-01-31 15:23] LABS: ABS Basophils 0.1 10^3/uL (0.0-0.1); ABS Lymphocytes 0.7 10^3/uL (1.0-4.8); ABS Monocytes 0.6 10^3/uL (0.0-1.1); ABS Neutrophils 11.1 10^3/uL (1.5-7.6); Eosinophil % 0.2 %; Hematocrit 30.8 % (38-53); Hemoglobin 10.4 g/dL (13.2-16.3); Lymphocyte % 5.9 %; Mean Corpuscular Hemoglobin 31.5 pg (27-33); Mean Corpuscular Hgb Conc 33.9 g/dL (31-36); Mean Corpuscular Volume 92.9 fL (80-97); Mean Platelet Volume 8.6 fL (7.5-11.2); Platelet Count 309 10^3/uL (150-450); Red Blood Count 3.31 10^6/uL (4.06-5.63); Red Cell Distribution Width 13.1 % (12-17); White Blood Count 12.6 10^3/uL (3.6-10.2)
[2023-01-31 15:28] LABS: INR 1.82 (0.83-1.13)
[2023-01-31 15:43] LABS: Albumin 3.7 g/dL (3.2-5.2); CO2 Carbon Dioxide 23 mmol/L (22-32); Calcium 9.6 mg/dL (8.6-10.3); Chloride 101 mmol/L (101-111); Sodium 131 mmol/L (135-145)
[2023-01-31 15:51] LABS: ALT 16 U/L (7-52); Alkaline Phosphatase 92 U/L (35-149); Blood Urea Nitrogen 39 mg/dL (6-24); Creatinine, Serum 1.68 mg/dL (0.67-1.17); Globulin 3.8 g/dL (2-4); Glucose 306 mg/dL (70-100); Total Protein 7.5 g/dL (6.4-8.9); eGFR CKD-EPI 39.3 (>60)
[2023-01-31 15:54] LABS: Anion Gap 7 mmol/L (2-16)
[2023-01-31] MEDS ORDERED: Iodixanol (CONTRAST) 320 MG/ML 100 ML SDV IV ONE (16:16)
[2023-01-31 17:12] LABS: Potassium Redraw 5.1 mmol/L (3.5-5.0)
[2023-01-31 20:09] LABS: Urine Appearance Turbid; Urine Bacteria Absent (Absent); Urine Bilirubin Negative (Negative); Urine Blood 3+ (Negative); Urine Glucose 1+(50 mg/dL) (Negative); Urine Ketones Negative (Negative); Urine Nitrite Negative (Negative); Urine Protein 3+(>=500 mg/dL) (Negative); Urine Red Blood Cell 3+(>10/hpf) (Absent); Urine Specific Gravity 1.017 (1.002-1.030); Urine Urobilinogen Negative (Negative); Urine White Blood Cell 3+(>20/hpf) (Absent)
[2023-01-31 20:38] LABS: Urine Color Amber
[2023-01-31] MEDS ORDERED: NS 0.9% 1000 ml BAG 1,000 ML IV SCH ×2 (23:15)
[2023-01-31] MEDS ORDERED: Dextrose 50% Syringe 50 ml 25 GM/50 ML SYRINGE IV PUSH PRN (23:19)
[2023-02-01] MEDS ORDERED: Piperacillin/Tazobac 3.375 BAG 3.375 GM/100 ML BAG IV SCH
[2023-02-01] MEDS ORDERED: Dextrose 50% Syringe 50 ml 25 GM/50 ML SYRINGE IV PUSH PRN (00:02)
[2023-02-01] MEDS: DULoxetine DR 30 mg CAP PO SCH ×3 (00:28→21:23)
[2023-02-01] MEDS: Insulin GLARGINE 100 un/ml 10 ml VIAL SUBCUT SCH ×2 (01:33→21:24)
[2023-02-01 04:35] LABS: ABS Basophils 0.1 10^3/uL (0.0-0.1); ABS Eosinophils 0.2 10^3/uL (0.0-0.5); ABS Lymphocytes 1.2 10^3/uL (1.0-4.8); ABS Monocytes 0.8 10^3/uL (0.0-1.1); ABS Neutrophils 6.5 10^3/uL (1.5-7.6); Eosinophil % 2.6 %; Hematocrit 29.2 % (38-53); Hemoglobin 10.1 g/dL (13.2-16.3); Lymphocyte % 13.4 %; Mean Corpuscular Hemoglobin 31.9 pg (27-33); Mean Corpuscular Hgb Conc 34.6 g/dL (31-36); Mean Corpuscular Volume 92.2 fL (80-97); Mean Platelet Volume 7.8 fL (7.5-11.2); Platelet Count 295 10^3/uL (150-450); Red Blood Count 3.17 10^6/uL (4.06-5.63); Red Cell Distribution Width 13.2 % (12-17); White Blood Count 8.7 10^3/uL (3.6-10.2)
[2023-02-01 04:57] LABS: C Reactive Protein 52.26 mg/L (<8.01); Calcium 9.7 mg/dL (8.6-10.3); Creatinine, Serum 1.54 mg/dL (0.67-1.17); Magnesium 1.7 mg/dL (1.9-2.7); Potassium 4.7 mmol/L (3.5-5.0); eGFR CKD-EPI 43.7 (>60)
[2023-02-01] MEDS ORDERED: Magnesium Sulfate 2 gm BAG 2 GM/50 ML BAG IVPB ONE (07:14)
[2023-02-01] MEDS: cefTRIAXone 1 gm/50 mL D5W 1 GM/50 ML BAG IV SCH (09:08)
[2023-02-01] MEDS: Clotrimazole 1% CREAM 30 gm TOPICAL SCH ×2 (09:10→21:26)
[2023-02-01] MEDS: PANCRELIPASE 12000 UNIT PO SCH (10:42)
[2023-02-02 07:25] LABS: Calcium 9.4 mg/dL (8.6-10.3); Creatinine, Serum 1.24 mg/dL (0.67-1.17); Magnesium 1.9 mg/dL (1.9-2.7); Potassium 4.7 mmol/L (3.5-5.0); eGFR CKD-EPI 56.6 (>60)
[2023-02-02] MEDS: DULoxetine DR 30 mg CAP PO SCH (09:01)
[2023-02-02] MEDS: Clotrimazole 1% CREAM 30 gm TOPICAL SCH ×2 (09:02→09:30)
[2023-02-02] MEDS: PANCRELIPASE 12000 UNIT PO SCH (09:02)
[2023-02-02] MEDS: cefTRIAXone 1 gm/50 mL D5W 1 GM/50 ML BAG IV SCH (09:34)
[2023-02-02 10:03] VITALS: BP 131/69
== END 2023-02-02 16:30 | disposition home or self-care (01) | DRG 690 ==
LOC: ED 12:54 → EDHOLD 21:32 → SUATTDRO 21:32 → MED 21:32 → MEDTELE 02-01 13:19 → MED 02-01 17:53
PROVIDERS: ADMIT Internal Medicine; ATTEND Student in an Organized Health Care Education/Training Program

== ENCOUNTER 2023-10-06 16:14 | Inpatient (IN) ==
[2023-10-06 17:23] LABS: ABS Basophils 0.1 10^3/uL (0.0-0.1); ABS Eosinophils 0.1 10^3/uL (0.0-0.5); ABS Lymphocytes 0.8 10^3/uL (1.0-4.8); ABS Monocytes 0.5 10^3/uL (0.0-1.1); ABS Nucleated RBC 0.01 10^3/ul; Eosinophil % 0.7 %; Hematocrit 33.1 % (38-53); Lymphocyte % 6.5 %; Mean Corpuscular Hgb Conc 33.3 g/dL (31-36); Mean Corpuscular Volume 92.9 fL (80-97); Nucleated Red Blood Cells % 0.1 %/100WBC (0.0-0.8); Platelet Count 292 10^3/uL (150-450); Red Blood Count 3.56 10^6/uL (4.06-5.63); Red Cell Distribution Width 13.6 % (12-17); White Blood Count 12.4 10^3/uL (3.6-10.2)
[2023-10-06] MEDS: Dextrose 50% Syringe 50 ml 25 GM/50 ML SYRINGE IV PUSH ONE ×3 (17:28→23:20)
[2023-10-06 18:27] LABS: Urine Appearance Turbid; Urine Bilirubin Negative (Negative); Urine Blood 2+ (Negative); Urine Color Light-Yellow; Urine Glucose Trace (Negative); Urine Ketones Negative (Negative); Urine Nitrite Negative (Negative); Urine Protein 2+ (>=100 mg/dL) (Negative); Urine Specific Gravity 1.011 (1.002-1.030); Urine Urobilinogen Negative (Negative)
[2023-10-06 18:31] LABS: Albumin/Globulin Ratio 1.3 (1-3); Calcium 8.4 mg/dL (8.6-10.3); Creatinine, Serum 5.61 mg/dL (0.67-1.17); Globulin 3.1 g/dL (2-4); Magnesium 1.7 mg/dL (1.9-2.7); Total Bilirubin 0.3 mg/dL (0.2-1.0); Total Protein 7.1 g/dL (6.4-8.9); eGFR CKD-EPI 9.2 (>60)
[2023-10-06 18:33] LABS: Potassium 7.1 mmol/L (3.5-5.0)
[2023-10-06 18:35] LABS: Urine Bacteria 2+ /HPF (Absent); Urine Red Blood Cell 3+(>10/hpf) /HPF (0-Trace); Urine White Blood Cell 3+(>20/hpf) /HPF (0-Trace)
[2023-10-06 18:38] LABS: TSH Ultra Thyroid Stim Horm 1.93 mcIU/mL (0.34-5.60)
[2023-10-06 18:42] LABS: High Sensitivity Troponin 1 Hr 15 pg/mL (<20)
[2023-10-06] MEDS: CALCIUM GLUCONATE 1GM/50ML NS 1 GM/50 ML BAG IV ONE (18:53)
[2023-10-06] MEDS: NS 0.9% 500 ml BAG 500 ML IV ONE (18:54)
[2023-10-06] MEDS: Patiromer POWDER 8.4 GM PAK PO ONE (18:58)
[2023-10-06] MEDS: Magnesium Sulfate IV 1GM/100ML 1 GM/100 ML BAG IV ONE (19:38)
[2023-10-06] MEDS: Sodium Polystyrene ORAL.SUSP 15 GM/60 ML BTL PO ONE (20:13)
[2023-10-06 20:53] LABS: Calcium 8.7 mg/dL (8.6-10.3); Creatinine, Serum 5.56 mg/dL (0.67-1.17); eGFR CKD-EPI 9.3 (>60)
[2023-10-06] MEDS: D5W 1000 ml BAG 1,000 ML IV SCH (21:41)
[2023-10-06] MEDS: Dextrose 50% Syringe 50 ml 25 GM/50 ML SYRINGE IV PUSH PRN (22:53)
[2023-10-06] MEDS: Sodium Bicarb 8.4% Vial 50 ML 150 MEQ in D5W 1000 ml BAG 850 ML IV SCH (23:08)
[2023-10-06] MEDS: cefTRIAXone 1 gm/50 mL D5W 1 GM/50 ML BAG IV SCH (23:17)
[2023-10-07 01:01] LABS: Anion Gap 15 mmol/L (2-16); Blood Urea Nitrogen 96 mg/dL (6-24); CO2 Carbon Dioxide 16 mmol/L (22-32); Calcium 8.7 mg/dL (8.6-10.3); Chloride 109 mmol/L (101-111); Creatinine, Serum 5.53 mg/dL (0.67-1.17); Glucose 134 mg/dL (70-100); Sodium 140 mmol/L (135-145); eGFR CKD-EPI 9.4 (>60)
[2023-10-07 01:24] LABS: Potassium, Whole Blood 5.9 mmol/L (3.4-4.5)
[2023-10-07 04:40] LABS: ABS Basophils 0.1 10^3/uL (0.0-0.1); ABS Eosinophils 0.2 10^3/uL (0.0-0.5); ABS Lymphocytes 1.2 10^3/uL (1.0-4.8); ABS Monocytes 0.7 10^3/uL (0.0-1.1); ABS Neutrophils 7.7 10^3/uL (1.5-7.6); Eosinophil % 2.3 %; Hematocrit 29.5 % (38-53); Lymphocyte % 11.9 %; Mean Corpuscular Hemoglobin 31.1 pg (27-33); Mean Corpuscular Hgb Conc 33.8 g/dL (31-36); Mean Corpuscular Volume 91.9 fL (80-97); Mean Platelet Volume 7.7 fL (7.5-11.2); Platelet Count 281 10^3/uL (150-450); Red Blood Count 3.21 10^6/uL (4.06-5.63); Red Cell Distribution Width 13.5 % (12-17); White Blood Count 9.8 10^3/uL (3.6-10.2)
[2023-10-07 04:56] LABS: Calcium 8.2 mg/dL (8.6-10.3); Creatinine, Serum 5.36 mg/dL (0.67-1.17); Potassium 4.9 mmol/L (3.5-5.0); eGFR CKD-EPI 9.7 (>60)
[2023-10-07] MEDS: DULoxetine DR 30 mg CAP PO SCH (08:59)
[2023-10-07] MEDS ORDERED: Sodium Bicarb 8.4% Vial 50 ML 150 MEQ in D5W 1000 ml BAG 850 ML IV SCH (09:00)
[2023-10-07 11:16] LABS: INR 1.16 (0.83-1.13)
[2023-10-07 11:25] LABS: C Reactive Protein 8.57 mg/L (<8.01); Rheumatoid Factor < 10 IU/mL (<15)
[2023-10-07 12:25] LABS: HIV 4th Generation Nonreactive (Nonreactive)
[2023-10-07] MEDS: Heparin 5000 UNITS/ML 1 mL VIAL SUBCUT SCH (15:36)
[2023-10-07 16:54] LABS: Hepatitis B Surface Ab Not Immune (Immune); Hepatitis C Antibody Negative (Negative)
[2023-10-07 23:25] LABS: Hepatitis B Surface Antigen Nonreactive (Nonreactive)
[2023-10-08 04:48] LABS: Calcium 7.7 mg/dL (8.6-10.3); Creatinine, Serum 4.78 mg/dL (0.67-1.17); Potassium 4.5 mmol/L (3.5-5.0); eGFR CKD-EPI 11.1 (>60)
[2023-10-08 05:06] LABS: ABS Basophils 0.1 10^3/uL (0.0-0.1); ABS Eosinophils 0.2 10^3/uL (0.0-0.5); ABS Lymphocytes 1.2 10^3/uL (1.0-4.8); ABS Monocytes 0.5 10^3/uL (0.0-1.1); ABS Neutrophils 5.9 10^3/uL (1.5-7.6); ABS Nucleated RBC 0.01 10^3/ul; Eosinophil % 2.7 %; Hematocrit 29.7 % (38-53); Hemoglobin 10.1 g/dL (13.2-16.3); Lymphocyte % 15.3 %; Mean Corpuscular Hemoglobin 31.2 pg (27-33); Mean Corpuscular Hgb Conc 34.1 g/dL (31-36); Mean Corpuscular Volume 91.5 fL (80-97); Mean Platelet Volume 8.3 fL (7.5-11.2); Nucleated Red Blood Cells % 0.1 %/100WBC (0.0-0.8); Platelet Count 250 10^3/uL (150-450); Red Blood Count 3.24 10^6/uL (4.06-5.63); Red Cell Distribution Width 13.4 % (12-17)
[2023-10-08] MEDS: fentaNYL 100 mcg/2 ml 50 MCG/ML VIAL ONE (13:14)
[2023-10-08 14:28] LABS: Complement C3 107 mg/dL (75 - 175)
[2023-10-08 15:00] LABS: Kappa Free Light Chain 7.94 mg/dL; Lambda Free Light Chain, S 3.48 mg/dL
[2023-10-09 06:15] LABS: ABS Basophils 0.1 10^3/uL (0.0-0.1); ABS Eosinophils 0.3 10^3/uL (0.0-0.5); ABS Lymphocytes 1.1 10^3/uL (1.0-4.8); ABS Monocytes 0.4 10^3/uL (0.0-1.1); Eosinophil % 2.6 %; Hematocrit 31.2 % (38-53); Hemoglobin 10.6 g/dL (13.2-16.3); Lymphocyte % 11.2 %; Mean Corpuscular Hemoglobin 31.1 pg (27-33); Mean Corpuscular Hgb Conc 33.9 g/dL (31-36); Mean Corpuscular Volume 91.9 fL (80-97); Platelet Count 238 10^3/uL (150-450); Red Blood Count 3.39 10^6/uL (4.06-5.63); White Blood Count 9.8 10^3/uL (3.6-10.2)
[2023-10-09 06:42] LABS: Calcium 7.6 mg/dL (8.6-10.3); Creatinine, Serum 4.14 mg/dL (0.67-1.17); Magnesium 1.5 mg/dL (1.9-2.7); Potassium 3.4 mmol/L (3.5-5.0); eGFR CKD-EPI 13.2 (>60)
[2023-10-09] MEDS: Magnesium Sulfate 2 gm BAG 2 GM/50 ML BAG IVPB ONE (13:24)
[2023-10-09 13:31] LABS: Flag, M-protein Isotype Negative (Negative); Immunoglobulin A (IgA), S 186 mg/dL (61 - 356); Immunoglobulin G (IgG), S 1180 mg/dL (767 - 1590); Immunoglobulin M (IgM), S 173 mg/dL (37 - 286)
[2023-10-09] MEDS: COVID VAC 23-24(12+)(Moderna) SYR 0.5 ML IM ONE (13:42)
[2023-10-09] MEDS: Magnesium Sulfate IV 1GM/100ML 1 GM/100 ML BAG IV ONE (14:36)
[2023-10-09 16:15] LABS: PLA2R, Immunofluorescence, S Negative (Negative)
[2023-10-09 16:29] LABS: C-ANCA Negative (Negative); P-ANCA Positive (Negative)
[2023-10-10 05:47] LABS: ABS Eosinophils 0.2 10^3/uL (0.0-0.5); ABS Lymphocytes 1.2 10^3/uL (1.0-4.8); ABS Monocytes 0.6 10^3/uL (0.0-1.1); ABS Neutrophils 8.3 10^3/uL (1.5-7.6); ABS Nucleated RBC 0.01 10^3/ul; Eosinophil % 2.2 %; Hemoglobin 9.8 g/dL (13.2-16.3); Lymphocyte % 11.3 %; Mean Corpuscular Hemoglobin 30.7 pg (27-33); Mean Corpuscular Hgb Conc 33.7 g/dL (31-36); Mean Platelet Volume 7.6 fL (7.5-11.2); Platelet Count 254 10^3/uL (150-450); Red Blood Count 3.19 10^6/uL (4.06-5.63); White Blood Count 10.4 10^3/uL (3.6-10.2)
[2023-10-10 06:23] LABS: Calcium 7.7 mg/dL (8.6-10.3); Magnesium 2.3 mg/dL (1.9-2.7); Potassium 3.4 mmol/L (3.5-5.0); eGFR CKD-EPI 13.8 (>60)
[2023-10-10] MEDS: Desmopressin Acetate 30 MCG in NS 0.9% 50 ML 50 ML IVPB ONE (11:25)
[2023-10-10] MEDS: Bismuth Subsalicylate (BTL) 525 MG/30 ML (BULK BTL) PO PRN (21:31)
[2023-10-11 08:30] LABS: ABS Eosinophils 0.2 10^3/uL (0.0-0.5); ABS Lymphocytes 1.2 10^3/uL (1.0-4.8); ABS Monocytes 0.6 10^3/uL (0.0-1.1); ABS Neutrophils 7.9 10^3/uL (1.5-7.6); ABS Nucleated RBC 0.01 10^3/ul; Eosinophil % 1.8 %; Hemoglobin 9.1 g/dL (13.2-16.3); Lymphocyte % 11.8 %; Mean Corpuscular Hgb Conc 33.9 g/dL (31-36); Mean Corpuscular Volume 91.5 fL (80-97); Mean Platelet Volume 8.1 fL (7.5-11.2); Nucleated Red Blood Cells % 0.1 %/100WBC (0.0-0.8); Platelet Count 246 10^3/uL (150-450); Red Blood Count 2.95 10^6/uL (4.06-5.63); Red Cell Distribution Width 12.8 % (12-17); White Blood Count 9.9 10^3/uL (3.6-10.2)
[2023-10-11 09:10] LABS: Calcium 8.1 mg/dL (8.6-10.3); Creatinine, Serum 3.83 mg/dL (0.67-1.17); Magnesium 2.1 mg/dL (1.9-2.7); Potassium 3.7 mmol/L (3.5-5.0); eGFR CKD-EPI 14.5 (>60)
[2023-10-12 08:28] LABS: ABS Basophils 0.1 10^3/uL (0.0-0.1); ABS Eosinophils 0.3 10^3/uL (0.0-0.5); ABS Monocytes 0.6 10^3/uL (0.0-1.1); ABS Neutrophils 9.4 10^3/uL (1.5-7.6); ABS Nucleated RBC 0.01 10^3/ul; Eosinophil % 2.9 %; Hematocrit 28.4 % (38-53); Hemoglobin 9.7 g/dL (13.2-16.3); Lymphocyte % 9.1 %; Mean Corpuscular Hemoglobin 31.3 pg (27-33); Mean Corpuscular Volume 91.8 fL (80-97); Mean Platelet Volume 8.3 fL (7.5-11.2); Nucleated Red Blood Cells % 0.1 %/100WBC (0.0-0.8); Platelet Count 250 10^3/uL (150-450); Red Blood Count 3.09 10^6/uL (4.06-5.63); White Blood Count 11.4 10^3/uL (3.6-10.2)
[2023-10-12] MEDS: Senna TAB 8.6 mg TAB PO PRN (08:48)
[2023-10-12 09:59] LABS: Calcium 8.7 mg/dL (8.6-10.3); Creatinine, Serum 3.41 mg/dL (0.67-1.17); Potassium 3.8 mmol/L (3.5-5.0); eGFR CKD-EPI 16.7 (>60)
[2023-10-13 11:21] LABS: Case Number KR-24-3031
[2023-10-13] MEDS: Polyethylene Glycol 3350 17 GM PACKET PO PRN (12:18)
[2023-10-13 14:48] VITALS: BP 123/64
[2023-10-13] MEDS: cefTRIAXone 1 gm/50 mL D5W 1 GM/50 ML BAG IV SCH (15:07)
== END 2023-10-13 18:45 | disposition home health service (06) | DRG 698 ==
LOC: ED 16:14 → ICU 19:50 → SUATTDRO 19:50 → ICU 21:18 → SSU 10-09 04:26
PROVIDERS: ADMIT Internal Medicine; ATTEND Internal Medicine

== ENCOUNTER 2023-12-12 12:16 | Inpatient (IN) ==
[2023-12-12 13:41] LABS: ABS Eosinophils 0.2 10^3/uL (0.0-0.5); ABS Lymphocytes 0.6 10^3/uL (1.0-4.8); ABS Monocytes 0.6 10^3/uL (0.0-1.1); ABS Neutrophils 7.5 10^3/uL (1.5-7.6); Hematocrit 20.6 % (38-53); Hemoglobin 6.8 g/dL (13.2-16.3); Lymphocyte % 6.8 %; Mean Corpuscular Hemoglobin 31.2 pg (27-33); Mean Corpuscular Hgb Conc 33.2 g/dL (31-36); Mean Platelet Volume 8.6 fL (7.5-11.2); Platelet Count 245 10^3/uL (150-450); Red Blood Count 2.19 10^6/uL (4.06-5.63); Red Cell Distribution Width 14.4 % (12-17); White Blood Count 8.8 10^3/uL (3.6-10.2)
[2023-12-12 15:16] LABS: Urine Appearance Clear; Urine Bilirubin Negative (Negative); Urine Blood 2+ (Negative); Urine Color Colorless; Urine Glucose Negative (Negative); Urine Ketones Negative (Negative); Urine Nitrite Negative (Negative); Urine Protein 1+ (>=30 mg/dL) (Negative); Urine Specific Gravity 1.008 (1.002-1.030); Urine Urobilinogen Negative (Negative)
[2023-12-12 15:47] LABS: Urine Bacteria 1+ /HPF (Absent); Urine Red Blood Cell 3+(>10/hpf) /HPF (0-Trace); Urine Squamous Epithelial Cell Present /HPF (Absent); Urine White Blood Cell 1+(6-10/hpf) /HPF (0-Trace)
[2023-12-12 15:58] LABS: Calcium 6.4 mg/dL (8.6-10.3); Creatinine, Serum 7.89 mg/dL (0.67-1.17); Potassium 5.8 mmol/L (3.5-5.0); eGFR CKD-EPI 6.1 (>60)
[2023-12-12] MEDS: CALCIUM GLUCONATE 1GM/50ML NS 1 GM/50 ML BAG IV ONE (16:38)
[2023-12-12] MEDS: NS 0.9% 1000 ml BAG 1,000 ML IV SCH (16:38)
[2023-12-12] MEDS: SODIUM ZIRCONIUM CYCLOSILICATE 10 GM PACKET PO ONE (18:03)
[2023-12-12] MEDS: Sodium Polystyrene ORAL.SUSP 15 GM/60 ML BTL PO ONE (18:07)
[2023-12-12] MEDS ORDERED: Dextrose 50% Syringe 50 ml 25 GM/50 ML SYRINGE IV PUSH PRN (18:43)
[2023-12-12] MEDS: Sodium Bicarb 8.4% Vial 50 ML 150 MEQ in D5W 1000 ml BAG 850 ML IV ONE ×3 (19:13→20:08)
[2023-12-12 19:46] LABS: Magnesium 1.5 mg/dL (1.9-2.7); Phosphorus 10.6 mg/dL (2.5-5.0)
[2023-12-12 20:10] LABS: Venous Bicarbonate HCO3 10.6 mmol/L (24-28)
[2023-12-12] MEDS: DULoxetine DR 30 mg CAP PO SCH (20:41)
[2023-12-13 00:48] LABS: Hematocrit 25.2 % (38-53); Hemoglobin 8.5 g/dL (13.2-16.3); Mean Corpuscular Hemoglobin 30.7 pg (27-33); Mean Corpuscular Hgb Conc 33.8 g/dL (31-36); Mean Corpuscular Volume 90.8 fL (80-97); Mean Platelet Volume 8.3 fL (7.5-11.2); Platelet Count 251 10^3/uL (150-450); Red Blood Count 2.77 10^6/uL (4.06-5.63); Red Cell Distribution Width 15.5 % (12-17); White Blood Count 10.6 10^3/uL (3.6-10.2)
[2023-12-13 03:24] LABS: Calcium 6.5 mg/dL (8.6-10.3); Creatinine, Serum 7.85 mg/dL (0.67-1.17); Potassium 4.7 mmol/L (3.5-5.0); eGFR CKD-EPI 6.1 (>60)
[2023-12-13] MEDS: Benzocaine/Menthol LOZ MT PRN (04:05)
[2023-12-13 07:30] LABS: Magnesium 1.4 mg/dL (1.9-2.7); Phosphorus 9.8 mg/dL (2.5-5.0)
[2023-12-13 08:20] LABS: ABS Eosinophils 0.2 10^3/uL (0.0-0.5); ABS Lymphocytes 0.7 10^3/uL (1.0-4.8); ABS Monocytes 0.8 10^3/uL (0.0-1.1); ABS Neutrophils 9.1 10^3/uL (1.5-7.6); ABS Nucleated RBC 0.01 10^3/ul; Hematocrit 25.2 % (38-53); Hemoglobin 8.7 g/dL (13.2-16.3); Lymphocyte % 6.6 %; Mean Corpuscular Hemoglobin 30.9 pg (27-33); Mean Corpuscular Hgb Conc 34.5 g/dL (31-36); Mean Corpuscular Volume 89.5 fL (80-97); Mean Platelet Volume 8.8 fL (7.5-11.2); Nucleated Red Blood Cells % 0.1 %/100WBC (0.0-0.8); Platelet Count 253 10^3/uL (150-450); Red Blood Count 2.82 10^6/uL (4.06-5.63); Red Cell Distribution Width 15.6 % (12-17); White Blood Count 10.9 10^3/uL (3.6-10.2)
[2023-12-13 08:40] LABS: Calcium 6.5 mg/dL (8.6-10.3); Creatinine, Serum 7.38 mg/dL (0.67-1.17); Potassium 4.5 mmol/L (3.5-5.0); eGFR CKD-EPI 6.6 (>60)
[2023-12-13] MEDS: Pancrelipase 36,000 units (NF) PO SCH (11:40)
[2023-12-13] MEDS ORDERED: NS 0.9% 1000 ml BAG 200 ML IV PRN (14:08)
[2023-12-13] MEDS ORDERED: NS 0.9% 1000 ml BAG 100 ML IV PRN (14:08)
[2023-12-13] MEDS ORDERED: Albumin Human 25% 25 GM/100 ML BTL IV PRN (14:08)
[2023-12-13 15:33] LABS: Hepatitis B Surface Ab Not Immune (Immune)
[2023-12-13] MEDS: Sodium Bicarb 8.4% Vial 50 ML 150 MEQ in D5W 1000 ml BAG 850 ML IV ONE (16:27)
[2023-12-14 06:53] LABS: ABS Eosinophils 0.2 10^3/uL (0.0-0.5); ABS Lymphocytes 0.8 10^3/uL (1.0-4.8); ABS Monocytes 1.1 10^3/uL (0.0-1.1); ABS Neutrophils 9.2 10^3/uL (1.5-7.6); Hematocrit 25.1 % (38-53); Hemoglobin 8.5 g/dL (13.2-16.3); Mean Corpuscular Hemoglobin 30.5 pg (27-33); Mean Corpuscular Volume 89.6 fL (80-97); Mean Platelet Volume 8.8 fL (7.5-11.2); Platelet Count 254 10^3/uL (150-450); Red Cell Distribution Width 15.4 % (12-17); White Blood Count 11.4 10^3/uL (3.6-10.2)
[2023-12-14 07:26] LABS: Calcium 6.2 mg/dL (8.6-10.3); Creatinine, Serum 7.15 mg/dL (0.67-1.17); Magnesium 1.2 mg/dL (1.9-2.7); Phosphorus 8.4 mg/dL (2.5-5.0); Potassium 3.7 mmol/L (3.5-5.0); eGFR CKD-EPI 6.9 (>60)
[2023-12-14] MEDS: Heparin 1,000 UNIT/ML 10 ml (10,000 UNITS) CATHLAB/DIALYSIS DIALYSIS PRN (10:49)
[2023-12-14] MEDS: Metoprolol Tartrate 5 mg VIAL 5 ml VIAL (1 mg/ml) IV ONE (12:39)
[2023-12-14] MEDS: Potassium Chlor 20 meq TAB.ER PO ONE (13:34)
[2023-12-14] MEDS: Pancrelipase 5,000 units CAP PO SCH (13:45)
[2023-12-15 01:22] LABS: Hepatitis B Surface Antigen Nonreactive (Nonreactive)
[2023-12-15 06:22] LABS: Hemoglobin 7.8 g/dL (13.2-16.3); Mean Corpuscular Hemoglobin 30.1 pg (27-33); Mean Corpuscular Hgb Conc 33.7 g/dL (31-36); Mean Corpuscular Volume 89.4 fL (80-97); Mean Platelet Volume 8.8 fL (7.5-11.2); Platelet Count 225 10^3/uL (150-450); Red Blood Count 2.57 10^6/uL (4.06-5.63); Red Cell Distribution Width 15.1 % (12-17); White Blood Count 9.2 10^3/uL (3.6-10.2)
[2023-12-15 06:46] LABS: Anion Gap 17 mmol/L (2-16); Blood Urea Nitrogen 70 mg/dL (6-24); CO2 Carbon Dioxide 23 mmol/L (22-32); Calcium 6.3 mg/dL (8.6-10.3); Chloride 103 mmol/L (101-111); Creatinine, Serum 5.66 mg/dL (0.67-1.17); Glucose 82 mg/dL (70-100); Magnesium 1.2 mg/dL (1.9-2.7); Potassium 3.9 mmol/L (3.5-5.0); Sodium 143 mmol/L (135-145); eGFR CKD-EPI 9.1 (>60)
[2023-12-15 11:19] LABS: ALT 12 U/L (7-52); AST 15 U/L (13-39); Phosphorus 6.6 mg/dL (2.5-5.0)
[2023-12-15 11:41] LABS: Vitamin D Total 25(OH) < 7.0 ng/mL (20-50)
[2023-12-16 06:47] LABS: Hematocrit 23.4 % (38-53); Mean Corpuscular Hemoglobin 30.6 pg (27-33); Mean Corpuscular Hgb Conc 34.4 g/dL (31-36); Mean Corpuscular Volume 88.9 fL (80-97); Platelet Count 240 10^3/uL (150-450); Red Blood Count 2.63 10^6/uL (4.06-5.63); Red Cell Distribution Width 14.9 % (12-17); White Blood Count 11.4 10^3/uL (3.6-10.2)
[2023-12-16 06:58] LABS: Calcium 6.6 mg/dL (8.6-10.3); Creatinine, Serum 5.8 mg/dL (0.67-1.17); Magnesium 1.2 mg/dL (1.9-2.7); Potassium 3.7 mmol/L (3.5-5.0); eGFR CKD-EPI 8.8 (>60)
[2023-12-16] MEDS: PANCRELIPASE 12000 UNIT PO SCH (08:27)
[2023-12-16] MEDS ORDERED: Metoprolol Tartrate 5 mg VIAL 5 ml VIAL (1 mg/ml) IV PRN (15:58)
[2023-12-16] MEDS: Metoprolol Tartrate 5 mg VIAL 5 ml VIAL (1 mg/ml) IV PRN (16:24)
[2023-12-16] MEDS: Magnesium Sulf 4 GM/100 ML IV 4,000 MG/100 ML BAG IVPB ONE (16:48)
[2023-12-16] MEDS: Potassium Chlor 20 meq TAB.ER PO ONE (17:22)
[2023-12-16] MEDS: Magnesium Sulfate 2 gm BAG 2 GM/50 ML BAG IVPB ONE (17:24)
[2023-12-17 05:58] LABS: Hematocrit 27.4 % (38-53); Hemoglobin 8.9 g/dL (13.2-16.3); Mean Corpuscular Hemoglobin 29.5 pg (27-33); Mean Corpuscular Hgb Conc 32.6 g/dL (31-36); Mean Corpuscular Volume 90.5 fL (80-97); Mean Platelet Volume 8.8 fL (7.5-11.2); Platelet Count 262 10^3/uL (150-450); Red Blood Count 3.03 10^6/uL (4.06-5.63); Red Cell Distribution Width 15.1 % (12-17); White Blood Count 11.8 10^3/uL (3.6-10.2)
[2023-12-17 06:12] LABS: Albumin 3.7 g/dL (3.2-5.2); Albumin/Globulin Ratio 1.2 (1-3); Calcium 7.6 mg/dL (8.6-10.3); Creatinine, Serum 4.13 mg/dL (0.67-1.17); Magnesium 1.6 mg/dL (1.9-2.7); Phosphorus 4.3 mg/dL (2.5-5.0); Potassium 4.1 mmol/L (3.5-5.0); Total Bilirubin 0.4 mg/dL (0.2-1.0); Total Protein 6.7 g/dL (6.4-8.9); eGFR CKD-EPI 13.3 (>60)
[2023-12-17] MEDS: Magnesium Sulfate 2 gm BAG 2 GM/50 ML BAG IVPB ONE (07:30)
[2023-12-17] MEDS: Ferric Gluconate IV 125 MG in NS 0.9% 100 ml BAG 100 ML IVPB SCH (13:18)
[2023-12-18 07:16] LABS: Hematocrit 27.1 % (38-53); Hemoglobin 9.2 g/dL (13.2-16.3); Mean Corpuscular Hemoglobin 30.9 pg (27-33); Mean Corpuscular Hgb Conc 34.1 g/dL (31-36); Mean Corpuscular Volume 90.8 fL (80-97); Mean Platelet Volume 8.8 fL (7.5-11.2); Platelet Count 231 10^3/uL (150-450); Red Blood Count 2.98 10^6/uL (4.06-5.63); Red Cell Distribution Width 14.7 % (12-17); White Blood Count 9.9 10^3/uL (3.6-10.2)
[2023-12-18 07:33] LABS: Calcium 7.6 mg/dL (8.6-10.3); Creatinine, Serum 3.42 mg/dL (0.67-1.17); Magnesium 1.7 mg/dL (1.9-2.7); Phosphorus 4.1 mg/dL (2.5-5.0); Potassium 3.6 mmol/L (3.5-5.0); eGFR CKD-EPI 16.7 (>60)
[2023-12-18] MEDS: Magnesium Sulfate 2 gm BAG 2 GM/50 ML BAG IVPB ONE (09:10)
[2023-12-18] MEDS: Potassium Chlor 20 meq TAB.ER PO ONE (09:17)
[2023-12-18] MEDS: Clindamycin 600 MG/D5W BAG 600 MG/50 ML BAG IV ONE (10:38)
[2023-12-18] MEDS ORDERED: Lidocaine 1% VIAL 10 MG/ML 30 ML VIAL ONE (11:13)
[2023-12-18] MEDS ORDERED: Midazolam 5 mg/5 ml VIAL 1 mg/ml 5 ml VIAL (5 mg) ONE ×2 (11:13→12:39)
[2023-12-18] MEDS ORDERED: fentaNYL 100 mcg/2 ml 50 MCG/ML VIAL ONE ×2 (11:13→12:39)
[2023-12-18] MEDS ORDERED: Heparin 2 UNITS/ML 1000 mls 1,000 ML IV ONE (12:11)
[2023-12-18] MEDS ORDERED: Heparin 1,000 UNIT/ML 10 ml (10,000 UNITS) CATHLAB/DIALYSIS ONE (12:46)
[2023-12-19 06:01] LABS: Hematocrit 24.6 % (38-53); Hemoglobin 8.6 g/dL (13.2-16.3); Mean Corpuscular Hemoglobin 31.3 pg (27-33); Mean Corpuscular Hgb Conc 34.8 g/dL (31-36); Mean Corpuscular Volume 89.9 fL (80-97); Mean Platelet Volume 8.7 fL (7.5-11.2); Platelet Count 242 10^3/uL (150-450); Red Blood Count 2.74 10^6/uL (4.06-5.63); Red Cell Distribution Width 15.1 % (12-17); White Blood Count 10.1 10^3/uL (3.6-10.2)
[2023-12-19 06:56] LABS: Calcium 7.9 mg/dL (8.6-10.3); Creatinine, Serum 4.25 mg/dL (0.67-1.17); Magnesium 2.1 mg/dL (1.9-2.7); Phosphorus 5.2 mg/dL (2.5-5.0); Potassium 4.1 mmol/L (3.5-5.0); eGFR CKD-EPI 12.8 (>60)
[2023-12-19 14:44] VITALS: BP 161/79
== END 2023-12-19 16:25 | disposition home or self-care (01) | DRG 683 ==
LOC: ED 12:16 → EDHOLD 12:16 → SUATTDRO 16:18 → MED 17:56 → SUATTDRO 12-14 12:00
PROVIDERS: ADMIT Student in an Organized Health Care Education/Training Program; ATTEND Internal Medicine